=== PATIENT | male | born 1955 | race Caucasian/White ===

== ENCOUNTER 2018-10-10 06:29 | Observation (INO) | payer OTHER ==
[2018-10-10 07:09] LABS: Absolute Lymphocytes (CBC) 1.4 K/uL (0.7-4.9); Basophils % 0.3 % (0-1.3); Eosinophils % 0.7 % (0-4.4); Hematocrit 49.5 % (39.6-49.0); Lymphocytes % 10.5 % (15.3-44.8); MPV 8.6 fL (7.6-11.3); Monocytes % 7.1 % (3.3-12.3); RBC Red Blood Cell Count 5.18 M/uL (4.33-5.43)
[2018-10-10] MEDS ORDERED: PROMETHAZINE 25 MG/ML VIAL ONE (07:17)
[2018-10-10] MEDS ORDERED: NA CHLORIDE 0.9% 1,000 ML ONE (07:17)
[2018-10-10] MEDS ORDERED: MORPHINE 4 MG/ML SYR ONE (07:17)
[2018-10-10 07:42] LABS: ALT/SGPT 27 U/L (12-78); AST/SGOT 28 U/L (15-37); Albumin 3.7 g/dL (3.4-5.0); Alkaline Phosphatase 68 U/L (45-117); BUN Blood Urea Nitrogen 14 mg/dL (7-18); Bicarbonate 27 mmol/L (21-32); Bilirubin Direct 0.2 mg/dL (0-0.2); Bilirubin Total 0.9 mg/dL (0.2-1.0); Glucose Level 126 mg/dL (74-106); Lipase 123 U/L (73-393); Protein, Total 7.5 g/dL (6.4-8.2); Sodium Level 139 mmol/L (136-145); Troponin (Emerg Dept Use Only) < 0.02 ng/mL (0.0-0.045)
[2018-10-10] MEDS ORDERED: FENTANYL CITR 100 MCG/2 ML ONE (08:35)
--- NOTE | 2018-10-10 08:48 | RAD REPORT ---
EXAM DESCRIPTION: CT - Angio Aorta For Dissection - 10/10/2018 8:29 am CLINICAL HISTORY: Chest pain radiating to the back. abd pain COMPARISON: No comparisons TECHNIQUE: CT angiography of the aorta was performed with MIPs. All CT scans are performed using dose optimization technique as appropriate and may include automated exposure control or mA/KV adjustment according to patient size. FINDINGS: A left aortic arch is present with normal branching pattern of the great vessels.No acute aortic finding is seen such as aneurysm, penetrating ulcer or dissection. The celiac axis, SMA, NAMAN and renal arteries are widely patent. Focal soft plaque is present right common iliac artery resultin g in mild luminal narrowing. No evidence of pulmonary embolism. Mild diffuse COPD. The liver demonstrates no focal mass or biliary dilatation.The spleen, pancreas, adrenal glands and k idneys are within normal limits for arterial phase imaging. No bowel obstruction, free fluid or abscess.The appendix is dilated and inflamed in the right lower q uadrant measuring up to 12 mm. An appendicolith is seen in the base of the appendix.No pathologic enl arged lymphadenopathy identified. Bilateral total hip arthroplasties are noted. IMPRESSION: Acute appendicitis. No acute aortic finding.
[2018-10-10] MEDS ORDERED: Levofloxacin 750mg IV 750 MG/150 ML BAG IV ONE (09:19)
[2018-10-10] MEDS ORDERED: METRONIDAZOLE 500mg IVPB 500 MG/100 ML BAG IV ONE (09:19)
--- NOTE | 2018-10-10 09:19 | EDPHYS ---
Physician Documentation [facility] Name: Aravind Lyles Age: 63 yrs Sex: Male : 1955 Arrival Date: 10/10/2018 Time: 06:29 Bed 8 Private MD: ED Physician Gianfranco Omalley HPI: 10/10 06:53 This 63 yrs old Male presents to ER via Ambulatory with complaints of snw Abdominal Pain. 06:53 The patient presents with abdominal pain right lower quadrant, in the left lower snw quadrant. Onset: The symptoms/episode began/occurred suddenly, at 02:00, and became worse and became persistent. The symptoms do not radiate. Associated signs and symptoms: Pertinent positives: nausea and vomiting. The symptoms are described as shooting, vague. Severity of pain: At its worst the pain was moderate severe in the emergency department the pain has improved mildly. The patient has not experienced similar symptoms in the past. It is unknown whether or not the patient has recently seen a physician, andreina Montoya. hx of GERD and Hypertriglyceridemia. Historical: - Allergies: 06:54 PENICILLINS; bb - Home Meds: 06:54 fenofibrate oral oral [Active]; Clonazepam Oral [Active]; Prevacid Oral [Active]; bb testosterone [Active]; - PMHx: 06:54 Anxiety; Hyperlipidemia; bb - PSHx: 06:54 hip replacement x 4; hernia with mesh; bb - Immunization history:: Adult Immunizations up to date. - Social history:: Smoking status: Patient/guardian denies using tobacco, Patient uses alcohol, occasionally. Patient/guardian denies using street drugs. - Ebola Screening: : No symptoms or risks identified at this time. ROS: 06:53 Constitutional: Negative for fever, chills, and weight loss, Eyes: Negative for injury, snw pain, redness, and discharge, ENT: Negative for injury, pain, and discharge, Neck: Negative for injury, pain, and swelling, Cardiovascular: Negative for chest pain, palpitations, and edema, Respiratory: Negative for shortness of breath, cough, wheezing, and pleuritic chest pain, Back: Negative for injury and pain, : Negative for injury, bleeding, discharge, and swelling, MS/Extremity: Negative for injury and deformity, Skin: Negative for injury, rash, and discoloration, Neuro: Negative for headache, weakness, numbness, tingling, and seizure. 06:53 Abdomen/GI: Positive for abdominal pain, vomiting, of the right lower quadrant and left lower quadrant. 06:54 Abdomen/GI: Negative for diarrhea, constipation, hematemesis, black/tarry stool, rectal snw pain, rectal bleeding. Exam: 06:52 Constitutional: This is a well developed, well nourished patient who is awake, alert, snw and in no acute distress. Head/Face: Normocephalic, atraumatic. Eyes: Pupils equal round and reactive to light, extra-ocular motions intact. Lids and lashes normal. Conjunctiva and sclera are non-icteric and not injected. Cornea within normal limits. Periorbital areas with no swelling, redness, or edema. ENT: Nares patent. No nasal discharge, no septal abnormalities noted. Tympanic membranes are normal and external auditory canals are clear. Oropharynx with no redness, swelling, or masses, exudates, or evidence of obstruction, uvula midline. Mucous membranes moist. Neck: Trachea midline, no thyromegaly or masses palpated, and no cervical lymphadenopathy. Supple, full range of motion without nuchal rigidity, or vertebral point tenderness. No Meningismus. Chest/axilla: Normal chest wall appearance and motion. Nontender with no deformity. No lesions are appreciated. Cardiovascular: Regular rate and rhythm with a normal S1 and S2. No gallops, murmurs, or rubs. Normal PMI, no JVD. No pulse deficits. Respiratory: Lungs have equal breath sounds bilaterally, clear to auscultation and percussion. No rales, rhonchi or wheezes noted. No increased work of breathing, no retractions or nasal flaring. Back: No spinal tenderness. No costovertebral tenderness. Full range of motion. Skin: Warm, dry with normal turgor. Normal color with no rashes, no lesions, and no evidence of cellulitis. MS/ Extremity: Pulses equal, no cyanosis. Neurovascular intact. Full, normal range of motion. Neuro: Awake and alert, GCS 15, oriented to person, place, time, and situation. Cranial nerves II-XII grossly intact. Motor strength 5/5 in all extremities. Sensory grossly intact. Cerebellar exam normal. Normal gait. Psych: Awake, alert, with orientation to person, place and time. Behavior, mood, and affect are within normal limits. 06:52 Abdomen/GI: Inspection: abdomen appears normal, Bowel sounds: hypoactive, Palpation: mild abdominal tenderness, in the right lower quadrant and left lower quadrant. Vital Signs: 06:54 BP 168 / 104; Pulse 103; Resp 18 S; Temp 99.4(O); Pulse Ox 99% on R/A; Weight 83.91 kg bb (R); Height 5 ft. 10 in. (177.80 cm) (R); Pain 7/10; 07:34 BP 158 / 94; Pulse 90; Resp 18; Pulse Ox 97% ; sv 08:34 BP 173 / 101; Pulse 94; Resp 18; Pulse Ox 99% on R/A; Pain 7/10; tw2 09:30 BP 173 / 98; Pulse 95; Resp 15; Pulse Ox 99% ; sv 10:30 BP 175 / 93; Pulse 91; Resp 14; Pulse Ox 99% ; sv 06:54 Body Mass Index 26.54 (83.91 kg, 177.80 cm) bb MDM: 06:43 Patient medically screened. snw 09:07 Data reviewed: vital signs, nurses notes. Data interpreted: Pulse oximetry: on room air snw is 99 %. Interpretation: normal. Counseling: I had a detailed discussion with the patient and/or guardian regarding: the historical points, exam findings, and any diagnostic results supporting the discharge/admit diagnosis, the presence of at least one elevated blood pressure reading (>120/80) during this emergency department visit, lab results, radiology results, the need for further work-up and treatment in the hospital. Physician consultation: Gianfranco Omalley MD was called at 09:07, was contacted at 09:07, regarding consult, to Call Dr. Gonzalez, in the emergency department to see patient at 09:08. 09:15 Physician consultation: Marvin Gonzalez MD was called at 09:15, was contacted at 09:15, kdr regarding admission, patient's condition, and will see patient in OR, shortly. 10/10 06:52 Order name: Basic Metabolic Panel; Complete Time: 07:43 snw 10/10 06:52 Order name: CBC with Diff; Complete Time: 07:15 snw 10/10 06:52 Order name: Creatinine for Radiology; Complete Time: 07:43 snw 10/10 06:52 Order name: Hepatic Function; Complete Time: 07:43 snw 10/10 06:52 Order name: Lipase; Complete Time: 07:43 snw 10/10 06:52 Order name: Troponin (emerg Dept Use Only); Complete Time: 07:43 snw 10/10 06:52 Order name: EKG; Complete Time: 06:53 snw 10/10 06:52 Order name: CT Aorta for Dissection; Complete Time: 08:59 snw 10/10 06:52 Order name: Labs collected and sent; Complete Time: 06:57 snw 10/10 06:52 Order name: EKG - Nurse/Tech; Complete Time: 07:00 snw Administered Medications: 07:10 Drug: Phenergan 12.5 mg Route: IVP; Site: right antecubital; bb 08:32 Follow up: Response: No adverse reaction; Nausea is decreased tw2 07:10 Drug: NS 0.9% 1000 ml Route: IV; Rate: 125 ml/hr; Site: right antecubital; bb 11:07 Follow up: Response: No adverse reaction; IV Status: Infusion continued upon admission sv 07:11 Drug: morphine 4 mg Route: IVP; Site: right antecubital; bb 08:34 Follow up: Response: No adverse reaction; Pain is unchanged, physician notified tw2 08:32 Drug: fentaNYL (PF) 50 mcg Route: IVP; Site: right antecubital; tw2 09:00 Follow up: Response: No adverse reaction sv 09:50 Drug: Flagyl 500 mg Volume: 100 ml; Route: IVPB; Rate: 200 ml/hr; Infused Over: 30 sv mins; Site: right antecubital; 10:50 Follow up: Response: No adverse reaction; IV Status: Completed infusion; IV Intake: sv 100ml 10:51 Follow up: Response: No adverse reaction; IV Intake: 100ml sv 10:51 Drug: LevaQUIN 750 mg Volume: 150 ml; Route: IVPB; Infused Over: 90 mins; Site: right sv antecubital; 11:07 Follow up: Response: No adverse reaction; IV Status: Infusion continued upon admission sv Disposition: 09:16 Co-signature as Attending Physician, Gianfranco Omalley MD I agree with the assessment and kdr plan of care. Disposition: 10/10/18 09:16 Hospitalization ordered by Marvin Gonzalez for Observation. Preliminary diagnosis is Acute appendicitis. - Bed requested for Telemetry/MedSurg (Inpatient). - Status is Observation. sv - Condition is Stable. - Problem is new. - Symptoms are unchanged. UTI on Admission? No Signatures: Dispatcher [employer] EDKaruna Funez, RN RN sv Gianfranco Omalley MD MD [facility] Bibiana Freeman, KEITH-C TILESETTER-Csnw Lakia Hudson, RN RN bb Lore Wolfe RN RN tw2 Corrections: (The following items were deleted from the chart) 10:33 09:16 Hospitalization Ordered by Marvin Gonzalez MD for Inpatient Admission. Preliminary [facility] diagnosis is Acute appendicitis. Bed requested for Telemetry/MedSurg (Inpatient). Status is Inpatient Admission. Condition is Stable. Problem is new. Symptoms are unchanged. UTI on Admission? No. snw 11:08 10:33 10/10/2018 09:16 Hospitalization Ordered by Marvin Gonzalez MD for Observation. sv Preliminary diagnosis is Acute appendicitis. Bed requested for Telemetry/MedSurg (Inpatient). Status is Observation. Condition is Stable. Problem is new. Symptoms are unchanged. UTI on Admission? No. snw
--- NOTE | 2018-10-10 09:19 | ER ---
Nurse's Notes [facility] Name: Aravind Lyles Age: 63 yrs Sex: Male : 1955 Arrival Date: 10/10/2018 Time: 06:29 Bed 8 Private MD: Diagnosis: Acute appendicitis Presentation: 10/10 06:40 Presenting complaint: Patient states: he woke up this morning with a constant dull bb abdominal pain and vomiting denies diarrhea states "I just can't get comfortable". Transition of care: patient was not received from another setting of care. Onset of symptoms was October 10, 2018. Risk Assessment: Do you want to hurt yourself or someone else? Patient reports no desire to harm self or others. Initial Sepsis Screen: Does the patient meet any 2 criteria? No. Patient's initial sepsis screen is negative. Does the patient have a suspected source of infection? No. Patient's initial sepsis screen is negative. Care prior to arrival: None. 06:40 Method Of Arrival: Ambulatory 06:40 Acuity: BEN 3 bb Historical: - Allergies: 06:54 PENICILLINS; bb - Home Meds: 06:54 fenofibrate oral oral [Active]; Clonazepam Oral [Active]; Prevacid Oral [Active]; bb testosterone [Active]; - PMHx: 06:54 Anxiety; Hyperlipidemia; bb - PSHx: 06:54 hip replacement x 4; hernia with mesh; bb - Immunization history:: Adult Immunizations up to date. - Social history:: Smoking status: Patient/guardian denies using tobacco, Patient uses alcohol, occasionally. Patient/guardian denies using street drugs. - Ebola Screening: : No symptoms or risks identified at this time. Screenin:45 Abuse screen: Denies threats or abuse. Nutritional screening: No deficits noted. bb Tuberculosis screening: No symptoms or risk factors identified. Fall Risk None identified. Assessment: 06:45 General: Appears in no apparent distress. uncomfortable, Behavior is calm, cooperative. bb Pain: Complains of pain in abdomen Pain currently is 7 out of 10 on a pain scale. Pain began suddenly, Is continuous. Neuro: Level of Consciousness is awake, alert, obeys commands, Oriented to person, place, time, situation. Cardiovascular: Heart tones S1 S2 present Capillary refill < 3 seconds Patient's skin is warm and dry. Pulses are all present. Edema is absent. Respiratory: Airway is patent Respiratory effort is even, unlabored, Respiratory pattern is regular, Breath sounds are clear bilaterally. GI: Abdomen is non-distended, Bowel sounds present X 4 quads. Abd is soft X 4 quads Abdomen is tender to palpation in right lower quadrant and left lower quadrant Reports lower abdominal pain, vomiting. : No signs and/or symptoms were reported regarding the genitourinary system. Derm: Skin is pink, warm \\T\\ dry. Musculoskeletal: Circulation, motion, and sensation intact. 07:15 Reassessment: Patient appears in no apparent distress at this time. Patient and/or sv family updated on plan of care and expected duration. Pain level reassessed. Patient is alert, oriented x 3, equal unlabored respirations, skin warm/dry/pink. 08:34 Reassessment: Patient appears in no apparent distress at this time. Patient and/or tw2 family updated on plan of care and expected duration. Pain level reassessed. Patient is alert, oriented x 3, equal unlabored respirations, skin warm/dry/pink. Patient states symptoms have not improved. 10:51 Reassessment: Patient appears in no apparent distress at this time. Patient and/or sv family updated on plan of care and expected duration. Pain level reassessed. Patient is alert, oriented x 3, equal unlabored respirations, skin warm/dry/pink. 11:00 Reassessment: Patient appears in no apparent distress at this time. Patient and/or sv family updated on plan of care and expected duration. Pain level reassessed. Patient is alert, oriented x 3, equal unlabored respirations, skin warm/dry/pink. Vital Signs: 06:54 BP 168 / 104; Pulse 103; Resp 18 S; Temp 99.4(O); Pulse Ox 99% on R/A; Weight 83.91 kg bb (R); Height 5 ft. 10 in. (177.80 cm) (R); Pain 7/10; 07:34 BP 158 / 94; Pulse 90; Resp 18; Pulse Ox 97% ; sv 08:34 BP 173 / 101; Pulse 94; Resp 18; Pulse Ox 99% on R/A; Pain 7/10; tw2 09:30 BP 173 / 98; Pulse 95; Resp 15; Pulse Ox 99% ; sv 10:30 BP 175 / 93; Pulse 91; Resp 14; Pulse Ox 99% ; sv 06:54 Body Mass Index 26.54 (83.91 kg, 177.80 cm) bb ED Course: 06:29 Patient arrived in ED. ds1 06:43 Bibiana Freeman [facility]-C [facility]. snw 06:43 Nikunj Sanchez MD is Attending Physician. snw 06:45 Patient has correct armband on for positive identification. Placed in gown. Bed in low bb position. Call light in reach. Side rails up X 1. Adult w/ patient. Pulse ox on. NIBP on. Warm blanket given. 06:45 Initial lab(s) drawn, by me, sent to lab. Inserted saline lock: 20 gauge in right bb antecubital area, using aseptic technique. Blood collected. 06:50 Lakia Hudson RN is Primary Nurse. bb 06:52 Triage completed. bb 06:54 Arm band placed on Patient placed in an exam room, on a stretcher, on pulse oximetry. bb Family accompanied patient. 07:01 EKG done, by engine test cell technician. reviewed by Bibiana MCCARTNEY. tl2 08:29 CT Aorta for Dissection In Process Unspecified. EDMS 09:03 Attending Physician role handed off by Nikunj Sanchez MD kdr 09:03 Gianfranco Omalley MD is Attending Physician. kdr 09:15 Marvin Gonzalez MD is Hospitalizing Provider. snw 10:50 Primary Nurse role handed off by Lakia Hudson RN sv 10:50 Karuna Reed RN is Primary Nurse. sv 11:07 No provider procedures requiring assistance completed. Patient admitted, IV remains in sv place. intact. Administered Medications: 07:10 Drug: Phenergan 12.5 mg Route: IVP; Site: right antecubital; bb 08:32 Follow up: Response: No adverse reaction; Nausea is decreased tw2 07:10 Drug: NS 0.9% 1000 ml Route: IV; Rate: 125 ml/hr; Site: right antecubital; bb 11:07 Follow up: Response: No adverse reaction; IV Status: Infusion continued upon admission sv 07:11 Drug: morphine 4 mg Route: IVP; Site: right antecubital; bb 08:34 Follow up: Response: No adverse reaction; Pain is unchanged, physician notified tw2 08:32 Drug: fentaNYL (PF) 50 mcg Route: IVP; Site: right antecubital; tw2 09:00 Follow up: Response: No adverse reaction sv 09:50 Drug: Flagyl 500 mg Volume: 100 ml; Route: IVPB; Rate: 200 ml/hr; Infused Over: 30 sv mins; Site: right antecubital; 10:50 Follow up: Response: No adverse reaction; IV Status: Completed infusion; IV Intake: sv 100ml 10:51 Follow up: Response: No adverse reaction; IV Intake: 100ml sv 10:51 Drug: LevaQUIN 750 mg Volume: 150 ml; Route: IVPB; Infused Over: 90 mins; Site: right sv antecubital; 11:07 Follow up: Response: No adverse reaction; IV Status: Infusion continued upon admission sv Intake: 10:50 IV: 100ml; Total: 100ml. sv 10:51 IV: 100ml; Total: 200ml. sv Output: 10:00 Urine: 700ml (Voided); Total: 700ml. sv Outcome: 09:16 Decision to Hospitalize by Provider. snw 11:06 Admitted to OR accompanied by nurse, family with patient, via stretcher, with chart, sv Report called to EMPLOYMENT RECRUITER 11:06 Condition: stable 11:06 Instructed on the need for admit. 11:08 Patient left the ED. sv Signatures: Dispatcher [employer] Karuna Julio RN RN sv Gianfranco Omalley MD MD kdr Therrien, Shelly, CUTTER HELPER-C CUTTER HELPER-CsnAdriana Carpio ds1 Lakia Hudson RN RN bb Lroe Wolfe RN RN tw2 Tracey Starr RN RN tl2
--- NOTE | 2018-10-10 09:54 | EKG ---
Test Date: 2018-10-10 Test Time: 07:06:06 Pest Control Specialist: KRISSY MEASUREMENT RESULTS: Intervals: Rate: 97 MS: 154 QRSD: 96 QT: 328 QTc: 416 [place]: P: 23 MS: 154 QRS: 28 T: 38 INTERPRETIVE STATEMENTS: Normal sinus rhythm Minimal voltage criteria for LVH, may be normal variant Borderline ECG No previous ECG available for comparison Electronically Signed On 10-10-18 09:53:52 CDT by Gabe Tam
--- NOTE | 2018-10-10 10:59 | P.CNS ---
Date of Consult: 10/10/18 Reason for Consult: Medical Management Requesting Physician: Marvin Gonzalez Primary Care Provider: Whitney Montoya NP([place]) Chief Complaint: Abdominal pain History of Present Illness: 63-year-old male presented to the emergency room with right lower quadrant abdominal pain with nausea and vomiting. I was consulted for medical management. Patient presented with right lower quadrant abdominal pain with nausea and vomiting. This started last night. Pain persisted. Pain was severe and localized to the right lower quadrant. Patient came to the ER for evaluation. White count elevated at 13.2, hemoglobin 16. Sodium 139, potassium 4.0. BUN of 14, creatinine 1.3 with a GFR 57. Glucose 126. CT scan-Acute appendicitis noted. Patient is NPO for surgery. Blood pressures slightly elevated the emergency room. Patient with no prior history of hypertension. Medical history consists of hypertriglyceridemia, GERD, and anxiety. Home medications list reviewed: Yes - Past Medical/Surgical History Diabetic: No -: GERD -: Hypertriglyceridemia -: Anxiety -: Former tobacco use -: Alcohol use -: 4 hip replacements -: Left inguinal hernia repair Psychosocial/ Personal History: Patient is - Family History Father Family History: Reviewed- Non-Contributory - Social History Smoking Status: Former smoker Alcohol use: Yes CD- Drugs: No Caffeine use: Yes Place of Residence: Home Review of Systems General: As per HPI Eyes: Unremarkable ENT: Unremarkable Respiratory: Unremarkable Cardiovascular: Unremarkable Gastrointestinal: Nausea, Vomiting, Abdominal Pain, As per HPI Genitourinary: Unremarkable Integumentary: Unremarkable Neurological: Unremarkable Lymphatics: Unremarkable Physical Examination General: Alert, In no apparent distress, Oriented x3, Cooperative HEENT: Atraumatic, Mucous membr. moist/pink Neck: Supple, No Thyromegaly Respiratory: Clear to auscultation bilaterally, Normal air movement Cardiovascular: Normal pulses, Regular rate/rhythm Gastrointestinal: Hypoactive, Non-distended, No masses, No rebound, No guarding , Tenderness (Right lower quadrant abdominal pain) Musculoskeletal: No erythema, No tenderness, No warmth Integumentary: No erythema, No warmth, No cyanosis Neurological: Normal speech, Normal strength at 5/5 x4 extr, Normal tone, Normal affect Laboratory Data (last 24 hrs) 10/10/18 06:45: Creatinine 1.35 H 10/10/18 06:45: WBC 13.2 H, Hgb 16.9, Hct 49.5 H, Plt Count 176 10/10/18 06:45: Sodium 139, Potassium 4.0, BUN 14, Creatinine 1.29, Glucose 126 H, Total Bilirubin 0.9, AST 28, ALT 27, Alkaline Phosphatase 68, Lipase 123 Conclusions/Impression: Impression: Right lower quadrant abdominal pain with nausea and vomiting secondary to acute appendicitis Elevated blood pressure without hypertension Hypertriglyceridemia GERD Anxiety Alcohol use Plan: Right lower quadrant abdominal pain with nausea and vomiting secondary to acute appendicitis: Patient currently admitted and NPO for surgery this morning. Continue IV antibiotic therapy and IV fluids. Will continue to monitor closely alongside surgery. Await findings. Elevated blood pressure without hypertension: Patient without history of hypertension. Blood pressure is elevated likely related to pain. Will adjust pain medication. Will provide IV blood pressure medication if systolic significantly elevated. Will continue to monitor closely. Hypertriglyceridemia: Hold his medication at this time GERD: Will continue with IV Pepcid. Anxiety: Will provide medication IV as needed. Alcohol use: Patient drinks 2-3 glasses of whiskey per day. Will monitor closely. Patient with no history of alcohol withdrawal in the past. Will address cessation education. Time Spent Managing Pts care (In Minutes): 55
[2018-10-10] MEDS ORDERED: GLYCOPYRROLATE 0.2 MG/ML SYR ONE (11:06)
[2018-10-10] MEDS ORDERED: PROPOFOL 200 MG/20 ML VIAL IV ONE (11:06)
[2018-10-10] MEDS ORDERED: FENTANYL CITR 250 MCG/5 ML ONE (11:07)
[2018-10-10] MEDS ORDERED: NEOSTIGMINE 1 MG/ML -10 ML VIAL ONE (11:08)
[2018-10-10] MEDS ORDERED: ONDANSETRON 4 MG/2 ML VIAL ONE (11:08)
[2018-10-10] MEDS ORDERED: ROCURONIUM 50 MG/5 ML VIAL IV ONE (11:08)
[2018-10-10] MEDS ORDERED: LIDOCAINE 2% MPF 5 ML VIAL ONE (11:09)
[2018-10-10] MEDS ORDERED: MIDAZOLAM HCL 2 MG/2 ML INJ ONE (11:12)
[2018-10-10] MEDS ORDERED: Ringers Lactate 1,000 ML IV ONE (12:08)
[2018-10-10] MEDS ORDERED: KETOROLAC 30 MG/ML INJ ONE (12:13)
[2018-10-10] MEDS ORDERED: ACETAMINOPHEN 500 MG TAB PO PRN (12:16)
[2018-10-10] MEDS ORDERED: HYDRALAZINE HCL 20 MG/ML VIAL IV PRN (12:16)
[2018-10-10] MEDS: NA CHLORIDE 0.9% 1,000 ML IV SCH ×3 (12:16→22:16)
[2018-10-10] MEDS ORDERED: LORazepam 2 MG/ML VIAL IV PRN (12:16)
[2018-10-10] MEDS ORDERED: FENTANYL CITR 100 MCG/2 ML IV PRN (12:16)
[2018-10-10] MEDS ORDERED: HYDROCODONE/APAP 7.5/325 MG TAB PO PRN (12:18)
[2018-10-10] MEDS ORDERED: MORPHINE 2 MG/ML SYR IV PRN (12:20)
--- NOTE | 2018-10-10 12:26 | P.BOP ---
Preoperative diagnosis: acute appendicitis Postoperative diagnosis: same Primary procedure: Laparoscopic appendectomy Claim Rep: Freida Obrien (ABDI) Estimated blood loss: <10cc Specimen: appendix Findings: as above Anesthesia: General Complications: None Transferred to: Recovery Room Condition: Good
[2018-10-10] MEDS ORDERED: LABETALOL HCL 100 MG/20 ML ONE (12:28)
--- NOTE | 2018-10-10 13:47 | PREOPHP ---
Date of Admission: 10/10/2018 History Of Present Illness: This is a case of a 63-year-old patient, this morning develop right lowe r quadrant tenderness with guarding. Come to the ER since the pain started 2 o'clock in the morning but by the morning it was not improving. So he came to the ER. Initial workup was done and then the y call me now that the patient had appendicitis and they asked me to proceed accordingly. He denies any dysuria, hematuria, hematochezia, or melena. Denies any recent traveling out of the country. De nies any family member sick at home. Denies any pain like this before. The patient stated that he h as a colonoscopy 1 year ago although his says mainly about 3-4 years ago, done by Dr. Watts and they claimed that it was completely negative, not even polyps. He denies any dysuria, hematuria, he matochezia, or melena. Denies any recent traveling out of the country. Denies any family member sic k at home. Allergies: PENICILLIN. Medications: Clonazepam, Prevacid, testosterone. Past Medical History: Anxiety and hyperlipidemia. Past Surgical History: Surgery includes hip replacement x4, left inguinal hernia with mesh. Family History: Noncontributory. He does not smoke. He does not drink alcohol. Review of Systems: Ten points, otherwise unremarkable. Physical Examination: General: The patient is awake and alert. HEENT: Pupils are equal and reactive, anicteric. Neck: Supple. Chest: Clear. Heart: S1, S2. Abdomen: Soft and depressible. There is right lower quadrant tenderness with guarding. Rovsing sig n and psoas sign positive. Rectal: Deferred. Genitalia: Deferred. Extremities: Good capillary refill. Neuro: Cranial nerves 2 through 12 grossly within normal limits. Laboratory Data: Blood work shows WBC count of 13.2, hemoglobin of 16.9. Creatinine is 1.35. Lipas e 123. Imaging: CAT scan of abdomen and pelvis interpreted by Dr. Cameron as no bowel obstruction. Bilateral hip arthroplasty. Acute appendicitis. Assessment: A 63-year-old male comes to us with acute appendicitis. Laparoscopic possible open appe ndectomy fully explained to the patient, which include but are not limited to infection, bleeding, da mage to adjacent structures, anesthesia complication, [place], even . He also understands this may n ot relieve his symptoms. He might need more than one surgical intervention. He understands the impo rtance of following up also with his primary doctor since we see the blood pressure in this situation to be 173 systolic occasionally although he says he has no blood pressure problems. We are going to consult hospitalist during this admission to help us to address that issue. EDITH Voice ID: [id number]
[2018-10-10] MEDS ORDERED: METRONIDAZOLE 500mg IVPB 500 MG/100 ML BAG IV SCH (15:00)
[2018-10-10 18:48] VITALS: BMI 26.5
[2018-10-10] MEDS ORDERED: ZOLPIDEM TARTRATE 5 MG TABLET PO ONE (20:00)
[2018-10-10] MEDS: FAMOTIDINE 20 MG/2 ML VIAL IV SCH (20:50)
--- NOTE | 2018-10-10 23:45 | OP ---
Date of Procedure: 10/10/2018 Surgeon: Marvin Gonzalez MD [facility] Cook: Freida Obrien. Preoperative Diagnosis: Acute appendicitis. Postoperative Diagnosis: Acute appendicitis. Procedure: Laparoscopic appendectomy. Estimated Blood Loss: Less than 10 cc. Specimen: Appendix. Anesthesia: General plus local. Indications: This is a case of a 63-year-old patient, comes with acute appendicitis. Laparoscopic v ersus open appendectomy benefits, alternatives, and risks were fully explained, which include but are not limited to infection, bleeding, damage to adjacent structures, anesthesia complication, [place], and even . He also understands this may not relieve any symptoms, he might need more than one surgi tatianna intervention. He understood, signed a consent. Description Of Procedure: The patient was brought to the operating room, placed in supine position. Anesthesia was done without complication. Abdominal area was prepped and draped in a sterile fashio n. Marcaine 0.5% was injected for local anesthetic, followed by sharp incision of the skin in the in fraumbilical region. Incision was carried down to fascia, which was opened under direct vision. Per itoneum was encountered, opened under direct vision. Vicryl #1 was placed inside the fascia. Clair trocar was carefully introduced. Pneumoperitoneum was obtained. I placed 2 more trocars, 5 mm each of them, in the suprapubic and left lower quadrant under direct visualization. This allowed me to v isualize the area of the appendix, looks inflamed, and the base of the appendix seems to be spared fr om the inflammation. So, we created a window in the base of the appendix, transected that with an En do JULIANNE 45 mm 3.5, and the mesoappendix with an Endo JULIANNE 45 mm 2.5. No bowel leak. No bleeding. The appendix was removed from abdominal cavity using EndoCatch through the umbilical incision. The area was inspected once again. No bowel leak. No bleeding. At that moment, I proceeded to remove the t rocars under direct vision, deflated the pneumoperitoneum, closed the fascia with #1 Vicryl, irrigate d subcutaneous tissue, closed that with 3-0 chromic, and the skin with chema. Sponge count and ins trument counts were correct. The patient tolerated the procedure well. The patient was sent to [facility] in stable condition. The patient will be admitted for pain control, IV antibiotics. The hospit alist will be looking at him since the blood pressure was elevated and he claimed he has no history o f blood pressure. They are going to be evaluated to see if he needs medical management or treatment for that. ROSA/OMID Voice ID: [id number] Report ID: [id number]
[2018-10-11] MEDS: METRONIDAZOLE 500mg IVPB 500 MG/100 ML BAG IV SCH ×3 (00:29→11:46)
[2018-10-11 06:05] VITALS: O2SAT 98
[2018-10-11 06:28] LABS: Absolute Lymphocytes (CBC) 1.3 K/uL (0.7-4.9); Basophils % 0.3 % (0-1.3); Eosinophils % 1.1 % (0-4.4); Hematocrit 43.3 % (39.6-49.0); Lymphocytes % 20.6 % (15.3-44.8); MPV 8.6 fL (7.6-11.3); Monocytes % 7.2 % (3.3-12.3)
[2018-10-11 06:42] LABS: Potassium 4.2 mmol/L (3.5-5.1)
[2018-10-11] MEDS: NA CHLORIDE 0.9% 1,000 ML IV SCH (08:16)
[2018-10-11] MEDS ORDERED: Levofloxacin500mg IV 500 MG/100 ML BAG IV SCH (09:00)
[2018-10-11] MEDS: FAMOTIDINE 20 MG/2 ML VIAL IV SCH (09:00)
--- NOTE | 2018-10-11 09:34 | P.PN ---
Subjective Date of Service: 10/11/18 Primary Care Provider: Whitney Montoya NP([place], [place]) Chief Complaint: Abdominal pain Subjective: Doing well Physical Examination - Vital Signs Temperature: 97.2 F Blood Pressure: 129/60 Pulse: 69 Respirations: 18 Pulse Ox (%): 98 - Physical Exam General: Alert, In no apparent distress, Oriented x3, Cooperative HEENT: Atraumatic Neck: Supple Respiratory: Clear to auscultation bilaterally, Normal air movement Cardiovascular: Normal pulses, Regular rate/rhythm Gastrointestinal: Normal bowel sounds, Soft and benign, Non-distended Musculoskeletal: No erythema, No tenderness, No warmth Integumentary: No erythema, No warmth, No cyanosis Neurological: Normal speech, Normal strength at 5/5 x4 extr, Normal tone, Normal affect - Studies Medications List Reviewed: Yes Assessment & Plan Discharge Plan: Home (Today) Physician Review Additional Text: Impression: Right lower quadrant abdominal pain with nausea and vomiting secondary to acute appendicitis Elevated blood pressure without hypertension Hypertriglyceridemia GERD Anxiety Alcohol use Plan: Right lower quadrant abdominal pain with nausea and vomiting secondary to acute appendicitis status post laparoscopic appendectomy: Patient doing well this time. Patient tolerating diet. Anticipate discharge today. Patient cleared from a medical standpoint. Will discuss with surgery. Continue with discharge instructions from surgery. Elevated blood pressure without hypertension: Patient without history of hypertension. Blood pressure stable at this time. Blood pressure elevated likely related to pain. No need for medication at this time. Hypertriglyceridemia: Patient may continue with home medication at discharge GERD: Patient may continue with home medication at discharge Anxiety: Patient may continue with home medication at discharge. Alcohol use: Patient drinks 2-3 glasses of whiskey per day. Will provide alcohol cessation education. Time Spent Managing Pts Care (In Minutes): 55
[2018-10-11 14:57] VITALS: BP 141/77; TEMP 97.7
== END 2018-10-11 13:12 | disposition home or self-care (01) ==
LOC: ER 06:29 → INTOOBSV 09:17 → ERHOLD 09:17 → 2ND 12:34 → UNDODISOB 10-11 11:06
PROVIDERS: ADMIT Surgery; ATTEND Surgery
PROC: 0DTJ4ZZ Resection of Appendix, Percutaneous Endoscopic Approach (ICD-10-PCS; principal; 2018-10-10 10:30)
DX: K35.80 Unspecified acute appendicitis (principal); E78.1 Pure hyperglyceridemia; K21.9 Gastro-esophageal reflux disease without esophagitis; F41.9 Anxiety disorder, unspecified; R03.0 Elevated blood-pressure reading, without diagnosis of hypertension; Z79.899 Other long term (current) drug therapy; Z72.89 Other problems related to lifestyle; Z87.891 Personal history of nicotine dependence
CPT/HCPCS: 36415; 71275; 74175; 80048; 80076; 83690; 83735; 84484; 85025; 88304; 88305; 93005; 96361; 96365; 96367; 96375; 99285; G0378; J2250; J2405; J2550; J2704; J2710; J3010; J7030; Q9967

== ENCOUNTER 2019-09-24 07:38 | Day surgery (SDC) | payer OTHER ==
--- NOTE | 2019-09-20 11:56 | RAD REPORT ---
EXAM DESCRIPTION: RAD - Chest Pa And Lat (2 Views) - 09/20/2019 11:42 am CLINICAL HISTORY: pre oppending cardiac catheterization COMPARISON: None TECHNIQUE: Frontal and lateral views of the chest were obtained. FINDINGS: The lungs are clear. Heart size is normal and central vasculature is within normal limit s. No pleural effusion or pneumothorax seen. No acute bony finding noted. No aortic abnormality. IMPRESSION: No acute cardiopulmonary process.
[2019-09-20 12:03] LABS: Protime INR 1.01
[2019-09-20 12:20] LABS: Absolute Lymphocytes (CBC) 1.6 K/uL (0.7-4.9); Basophils % 0.4 % (0-1.3); Hematocrit 45.1 % (39.6-49.0); Lymphocytes % 31.6 % (15.3-44.8); MPV 8.7 fL (7.6-11.3); RBC Red Blood Cell Count 4.78 M/uL (4.33-5.43)
[2019-09-20 12:34] LABS: Potassium 4.4 mmol/L (3.5-5.1)
[~2019-09-24 07:38] MED LIST: ATROPINE SULF 1 MG/10 ML SYR IV ONE; FENTANYL CITR 100 MCG/2 ML ONE; HEPA 1000U/500MLS 1,000 UNIT/500 ML BAG IV ONE; LIDOCAINE 1% MPF 30 ML VIAL ONE; MIDAZOLAM HCL 2 MG/2 ML INJ ONE; NA CHLORIDE 0.9% 0 ML ONE; NA CHLORIDE 0.9% 500 ML ONE
[2019-09-24] MEDS ORDERED: MIDAZOLAM HCL 2 MG/2 ML INJ ONE (07:41)
[2019-09-24] MEDS ORDERED: FENTANYL CITR 100 MCG/2 ML ONE (07:47)
[2019-09-24] MEDS ORDERED: FLUMAZENIL 0.1 MG/ML (5 mL VIAL) IV ONE (07:48)
--- OUTSIDE RECORDS SUMMARY | 2019-09-24 07:48 | XMS REPORT ---
:1955 Author Organization e[employer] Care Team Providers Name Role Phone Berna Coe Provider Role Unavailable Allergies, Adverse Reactions, Alerts Substance Reaction Event Type PCN Rash Drug Allergy Problems Problem Type Condition Code Onset Dates Condition Statu s Problem Dyslipidemia E78.5 Active Problem Low testosterone R79.89 Active Problem Gastroesophageal reflux disease K21.9 Active without esophagitis Assessment Chronic allergic rhinitis J30.9 Ac tive Assessment Chronic allergic conjunctivitis H10.45 Active Problem Anxiety F41.9 Active Problem Acute midline low back pain without M54.5 Active sciatica Problem Essential hypertension I10 Activ e Problem Acute allergic rhinitis due to J30.1 Active pollen Problem Chronic allergic conjunctivitis H10.45 Active Problem Non-seasonal allergic rhinitis, J30.89 Active unspecified trigger Problem Acute prostatitis N41.0 Active Problem Chronic allergic rhinitis J30.9 Ac tive Medications Medication Code Code Instructions Start End Status Dosage System Date Date Fenofibrate [facility] 82750175673 200 MG Orally Active 1 capsule Once a day with a meal Clonazepam ND 93778228694 1 MG Orally Once Jan 28, Active 1 tablet a day 2018 Ciprofloxacin ND 87637282469 500 MG Orally Feb 20, Active 1 tablet HCl every 12 hrs 2019 Testosterone ND 30377882946 200 MG/ML Active 1 ml Cypionate Intramuscular every 2 weeks BusPIRone HCl ND 16331687697 5 MG Orally Jan 28, Active 1 tablet Twice a day 2019 Tramadol HCl ND 19555846162 50 MG Orally Oct , Active 1 tablet Once a day 2019 as needed Lisinopril [facility] 02514277156 10 MG Orally Active 1 ta blet Once a day Flonase Allergy ND 31103011043 50 MCG/ACT Active 1 spray in Relief Nasally Once a each day nostril Lansoprazole ND 81030380149 30 MG Orally Active 1 capsule Once a day Results No Known Results Summary Purpose eClinicalWorks Submission
--- OUTSIDE RECORDS SUMMARY | 2019-09-24 07:48 | XMS REPORT ---
[...] K21.9 Active without esophagitis Assessment Chronic allergic conjunctivitis H10.45 Active Assessment Chronic allergic rhinitis J30.9 Ac tive Problem Anxiety F41.9 Active Problem Acute midline [...] Start End Status Dosage System Date Date Clonazepam [facility] 99112952783 1 MG Orally Once Jan 28, Active 1 tablet a day 2018 BusPIRone HCl ND 68058893163 5 MG Orally Jan 28, Active 1 tablet Twice a day 2019 Fenofibrate [facility] 91085619542 200 MG Orally Active 1 capsule Once a day with a meal Tramadol HCl ND 94621682451 50 MG Orally Jan 28, Active 1 tablet Once a day 2019 as needed Ciprofloxacin ND 66671625724 500 MG Orally Feb 20, Active 1 tablet HCl every 12 hrs 2018 Flonase Allergy ND 63865676863 50 MCG/ACT Active 1 spray in Relief Nasally Once a each day nostril Testosterone ND 41851151647 200 MG/ML Active 1 ml Cypionate Intramuscular every 2 weeks Lansoprazole ND 87248009506 30 MG Orally Active 1 capsule Once a day Lisinopril ND 71443396024 10 MG Orally Active 1 ta blet Once a day Results No Known Results Summary Purpose eClinicalWorks Submission
--- OUTSIDE RECORDS SUMMARY | 2019-09-24 07:48 | XMS REPORT | Continuity of Care Document ---
:1955 Author Organization [facility] Address [address] [place] [address] Care Team Providers Name Role Phone Luis CHRISTINE MD Primary Care Physician Devin METZGER Attending Clinician Unavailable Payers Payer Name Policy Type Policy Number Effective Date Expiration Date Gabe Mchugh Ppo [id number] [address] [facility] Problems Condition Condition Condition Status Onset Resolution Last Treating Co mments Source Name Details Category Date Date Treatment Clinician Date Dyslipidem Dyslipidem Problem Active [facility] Low Low Problem Active [facility] testostero testostero [facility] Gastroesop Gastroesop Problem Active [facility] hage[facility] hageal [facility] reflux reflux Memoria disease disease l without without Outpati esophagiti esophagiti en t s s Clinics Non-season Non-season Problem Active [facility] allergic allergic [facility] a rhinitis, rhinitis, l unspecifie unspecifie Ou tpati d trigger d trigger ent Clinics Anxiety Anxiety Problem [facility] Chronic Chronic Problem Active [facility] allergic allergic [facility] rhinitis rhinitis Mem[facility] a l [facility] ent [facility]ics Chronic Chronic Problem Active [facility] allergic allergic [facility] - conjunctiv conjunctiv Me moria itis itis l Outpati ent Clinics Essential Essential Problem Active [facility] hypertensi hypertensi [facility] - on on [facility]ics Acute Acute Problem Active [facility] prostatiti prostatiti [facility] - s s [facility] Acute Acute Problem Active [facility] midline midline [facility] - low back low back Memori a pain pain l without without Outpati sciatica sciatica ent Clinics Acute Acute Problem Active [facility] allergic allergic [facility] - rhinitis rhinitis Memori a due to due to l pollen pollen [facility] Allergies, Adverse Reactions, Alerts Allergy Allergy Status Severity Reaction(s) Onset Inactive Treating Comm ents Source Name Type Date Date Clinician Penicill Allergy Active Mild 2007-[address] [facility] [address] [facility] 05[facility]04 [facility] PCN Adverse Active Rash [facility] Reaction [facility] Medications Ordered Filled Start Stop Current Ordering Indication Dosage Frequency Signature Comments Components Source Medication Medication Date Date Medication? Clinician (SIG) Name Name Ciprofloxac Ciprofloxac 2018-04 Yes Berna [address] [facility] in HCl in HCl 1-20 [facility] - [facility]: [facility] 00 [facility] Clinics Clonazepam Clonazepam 2018-04 Yes Berna [address] [facility] 0-28 [facility] - [facility]: [facility] 00 [facility] BusPIRone BusPIRone 2018-04 Yes Berna [address] [facility] HCl HCl 0-28 [facility] [facility] - [facility]: Mem[facility] 00 [facility]ics Tramadol Tramadol 2018-04 Yes Berna [address] [facility] HCl HCl 0-28 [place] as needed [facility] - 00:[facility]: [facility] 00 [facility]ics Lisinopril Lisinopril Yes Berna [address] [facility] [place] [facility] Fenofibrate Fenofibrate Yes Berna [address] [facility] [place] with a [facility] - meal [facility]oria l [facility]ics Testosteron Testosteron Yes Berna [address] [facility] e Cypionate e Cypionate [facility] Flonase Flonase Yes Berna [address] [facility] Allergy Allergy [facility] each [facility] - Relief Relief nostril [facility] l [facility] Lansoprazol Lansoprazol Yes Berna [address] [facility] e e [place] [facility] Procedures This patient has no known procedures. Encounters Start End Encounter Admission Attending Care Care Encounter Source Date/Time Date/Time Type Type Clinicians Facility Department ID 2019-09-09 2019-09-09 Outpatient Artemio Celeste [id number] [facility] 10[facility]45[facility]00 10[facility]45[facility] Clin[facility] 2019-09-04 2019-09-04 [facility] [id number] [facility] 09:15:00 09:15:[facility]pat[facility] Clinics 2019-08-30 2019-08-30 [facility] [id number] 08:45:00 08:45:00 [facility] Clinics 2019-08-22 2019-08-22 [facility] [id number] [facility] 10:40:00 10:40:00 [facility] Outpat[facility] Clinics 2019-08-16 2019-08-16 [facility] [id number] 09:20:00 09:20:00 [facility] Medicine Outpati ent Clinics 2019-08-13 2019-08-13 [facility] [id number] [facility] 09:40:00 09:40:00 [facility] Medicine Outpat[facility] Clinics 2019-05-28 2019-05-28 [facility] [id number] [facility] 09[facility]24:00 09:24:00 [facility] Medicine Outpati ent Clinics 2019-05-27 2019-05-27 [facility] [id number] [facility] 09[facility]20:00 09:20:00 [facility] Medicine Outpati ent Clinics 2019-05-23 2019-05-23 [facility] [id number] [facility] 15:40:00 15:40:00 [facility] Medicine Outpat[facility] Clinics 2019-05-20 2019-05-20 [facility] [id number] [facility] 09:00:00 09:00:00 [facility] Medicine Outpati ent Clinics 2019-05-17 2019-05-17 [facility] [id number] 08:40:00 08:40:00 t [facility] Medicine Medicine Outpati ent Clinics 2019-05-15 2019-05-15 [facility] [id number] 10:40:00 10:40:00 [facility] Medicine [facility]pat[facility] Clinics 2019-04-08 2019-04-08 [facility] [id number] [facility] 10:40:00 10:40:00 t [facility] Medicine Medicine Outpati ent Clinics 2019-04-05 2019-04-05 [facility] [id number] 09:40:00 09:40:00 [facility]pat[facility] Clinics 2019-03-25 2019-03-25 [facility] [id number] [facility] 11:00:00 11:00:00 [facility] Outpat[facility] Clinics 2019-03-18 2019-03-18 [facility] [id number] [facility] 10:20:00 10:20:00 [facility] Medicine [facility]pat[facility] Clinics 2019-03-11 2019-03-11 [facility] [id number] [facility] [address] 09:20:00 09:20:00 [facility] Medicine Outpat[facility] Clinics 2019-02-20 2019-02-20 [facility] [id number] [facility] 08:00:00 08:00:00 t [facility] Medicine Medicine Outpati ent Clinics 2019-02-15 2019-02-15 Departed AMANDA GAGNON [facility] [id number] 14:01:00 15:30:[address] [place] [address] 2019-02-11 2019-02-11 [facility] [id number] 08[facility]20:00 08:20:00 [facility] Medicine Outpat[facility] Clinics 2019-02-04 2019-02-04 Outpatient Artemio Celeste [id number] [facility] 15:20:00 15:20:00 [facility] 2019-01-28 2019-01-28 Outpatient Artemio Celeste [id number] 09:00:00 09:00:00 [facility] Results Test Description Test Time Test Comments Results Result Sourc e Comments CT ABD/PEL WO 2019-02-15 CONTRAST-HOPD 15:17:00 [place] [address] Patient Name: ELENO ESCALONA MR #: [id number] : 1955 Age/Sex: 63/M Req #: [id number] Adm Physician: Ordered by: AMANDA METZGER MD Report #: [id number] Location: [facility] Room/Bed: Procedure: [id number] HOPD/CT ABD/PEL WO CONTRAST-HOPD Exam Date: 02/15/19 Exam Time: 1441 REPORT STATUS: Signed EXAM: CT Abdomen and Pelvis WITHOUT intravenous contrast INDICATION: Lower back pain COMPARISON: None. TECHNIQUE: Abdomen and pelvis were scanned utilizing a multidetector helical scanner from the lung base to the pubic symphysis without administration of IV contrast. Coronal and sagittal reformations were obtained. Routine protocol was performed. IV CONTRAST: None ORAL CONTRAST: Water RADIATION DOSE: Total DLP: 720.4 mGy*cm Dose modulation, iterative reconstruction, and/or weight based adjustment of the mA/kV was utilized to reduce the radiation dose to as low as reasonably achievable. FINDINGS: LOWER THORAX: Normal. HEPATOBILIARY: No focal hepatic lesions. No biliary ductal dilatation. The gallbladder appears unremarkable. SPLEEN: No splenomegaly. PANCREAS: No focal masses or ductal dilatation. ADRENALS: No adrenal nodules. KIDNEYS/URETERS: No hydronephrosis, stones, or solid mass lesions. PELVIC ORGANS/BLADDER: Evaluation is obscured by streak artifact from bilateral total hip replacement. PERITONEUM / RETROPERITONEUM: No free air or fluid. LYMPH NODES: No lymphadenopathy. VESSELS: Scattered atherosclerotic calcifications of the nonaneurysmal abdominal aorta and major branches. GI TRACT: Diverticulosis without CT evidence of diverticulitis. No abnormal bowel thickening. No bowel obstruction. Postoperative findings of appendectomy. BONES AND SOFT TISSUES: Status post right and left total hip replacements. No acute fracture or dislocation. IMPRESSION: No acute findings in the abdomen or pelvis. Signed by: Jose D Cavanaugh MD on 02/15/2019 3:23 PM Dictated By: JOSE D CAVANAUGH MD [id number] Transcribed By: BOUBACAR on 02/15/19 1523 COPY TO: AMANDA METZGER MD
--- OUTSIDE RECORDS SUMMARY | 2019-09-24 07:48 | XMS REPORT ---
[...] Start End Status Dosage System Date Date Lansoprazole [facility] 34347353041 30 MG Orally Active 1 capsule Once a day Tramadol HCl [facility] 20228253299 50 MG Orally Jan 28, Active 1 tablet Once a day 2019 as needed Lisinopril [facility] 73558839830 10 MG Orally Active 1 ta blet Once a day Fenofibrate ND 44108335907 200 MG Orally Active 1 capsule Once a day with a meal Testosterone ND 37502910800 200 MG/ML Active 1 ml Cypionate Intramuscular every 2 weeks Clonazepam ND 19044209933 1 MG Orally Once Jan 28, Active 1 tablet a day 2019 BusPIRone HCl ND 72843296690 5 MG Orally Jan 28, Active 1 tablet Twice a day 2018 Ciprofloxacin ND 13253279749 500 MG Orally Feb 20, Active 1 tablet HCl every 12 hrs 2018 Flonase Allergy ND 65221682576 50 MCG/ACT Active 1 spray in Relief Nasally Once a each day nostril Results No Known Results Summary Purpose eClinicalWorks Submission
--- OUTSIDE RECORDS SUMMARY | 2019-09-24 07:49 | XMS REPORT ---
[...] Start End Status Dosage System Date Date Testosterone [facility] 59603413553 200 MG/ML Active 1 ml Cypionate Intramuscular every 2 weeks Tramadol HCl ND 01531189310 50 MG Orally Jan 28, Active 1 tablet Once a day 2019 as needed Ciprofloxacin ND 96412696906 500 MG Orally Feb 20, Active 1 tablet HCl every 12 hrs 2018 BusPIRone HCl ND 31017628216 5 MG Orally Jan 28, Active 1 tablet Twice a day 2019 Fenofibrate [facility] 83085361295 200 MG Orally Active 1 capsule Once a day with a meal Lisinopril [facility] 88290946604 10 MG Orally Active 1 ta blet Once a day Clonazepam ND 87998902995 1 MG Orally Once Jan 28, Active 1 tablet a day 2019 Flonase Allergy [facility] 97313057212 50 MCG/ACT Active 1 spray in Relief Nasally Once a each day nostril Lansoprazole ND 92391047772 30 MG Orally Active 1 capsule Once a day Results No Known Results Summary Purpose eClinicalWorks Submission
--- OUTSIDE RECORDS SUMMARY | 2019-09-24 07:49 | XMS REPORT ---
[...] Start End Status Dosage System Date Date BusPIRone HCl [facility] 98858882359 5 MG Orally Jan 28, Active 1 tablet Twice a day 2018 Clonazepam ND 15950968216 1 MG Orally Once Jan 28, Active 1 tablet a day 2019 Flonase Allergy ND 28151281320 50 MCG/ACT Active 1 spray in Relief Nasally Once a each day nostril Lansoprazole ND 39109962211 30 MG Orally Active 1 capsule Once a day Fenofibrate ND 32240894755 200 MG Orally Active 1 capsule Once a day with a meal Lisinopril [facility] 18196750430 10 MG Orally Active 1 ta blet Once a day Ciprofloxacin ND 38760304284 500 MG Orally Feb 20, Active 1 tablet HCl every 12 hrs 2018 Tramadol HCl ND 75872533226 50 MG Orally Jan 28, Active 1 tablet Once a day 2019 as needed Testosterone ND 11438072312 200 MG/ML Active 1 ml Cypionate Intramuscular every 2 weeks Results No Known Results Summary Purpose eClinicalWorks Submission
--- OUTSIDE RECORDS SUMMARY | 2019-09-24 07:49 | XMS REPORT ---
[...] Status Dosage System Date Date BusPIRone HCl [facility] 67683331699 5 MG Orally Jan 28, Active 1 tablet Twice a day 2018 Testosterone [facility] 61687081409 200 MG/ML Active 1 ml Cypionate Intramuscular every 2 weeks Lisinopril [facility] 17456975264 10 MG Orally Active 1 ta blet Once a day Lansoprazole ND 92873340831 30 MG Orally Active 1 capsule Once a day Fenofibrate [facility] 92261325407 200 MG Orally Active 1 capsule Once a day with a meal Ciprofloxacin ND 41129698291 500 MG Orally Feb 20, Active 1 tablet HCl every 12 hrs 2018 Flonase Allergy ND 10571059000 50 MCG/ACT Active 1 spray in Relief Nasally Once a each day nostril Clonazepam ND 10186476448 1 MG Orally Once Jan 28, Active 1 tablet a day 2019 Tramadol HCl ND 46298948481 50 MG Orally Jan 28, Active 1 tablet Once a day 2019 as needed Results No Known Results Summary Purpose eClinicalWorks Submission
--- NOTE | 2019-09-24 08:46 | OP ---
Date of Procedure: 09/24/2019 Surgeon: Placido Magana MD Internal Control Consultant: Godfrey Mahajan. Procedure: Left heart catheterization, selective coronary artery angiogram. Reason For Procedure: Chest pain, abnormal echocardiogram, unstable angina. Description Of Procedure: The patient was brought to the asset availability leader today, 09/24/2019, as an outpatien t. He does have a history of hypertension, has a history of dyslipidemia, family history of heart di sease, abnormal function study as stated earlier. Brought to the asset availability leader, prepped and draped in the routine sterile fashion and given, I believe, 8 mg of Versed with some fentanyl for sedation. A 6-F rench sheath introduced in the right common femoral artery. Angiography there was normal. Angio-Sea l was used to close the case. Bianka catheter left and right were used to cannulate the left main a nd right main respectively. The RCA was small, normal, but it was nondominant. The left main was in jected, showing normal left main, normal circumflex. He was very left dominant. He had a 30% to 40% narrowing in the proximal LAD. The rest of the coronary arteries were perfectly normal. There were no complications. Blood Loss: 5 mL. Postoperative Diagnosis: Mild coronary artery disease. Assessment And Plan: Medical therapy for now. Anesthesia: Total conscious sedation was 30 minutes. Disposition: Patient will be at bedrest for 2 hours and go home, and he can see me in the office in the next 1-2 weeks. JOAN/OMID Voice ID: [id number] Report ID: [id number]
[2019-09-24 09:59] VITALS: BP 116/61; O2SAT 95
[2019-09-24 10:02] VITALS: TEMP 97.6
== END 2019-09-24 10:13 | disposition home or self-care (01) ==
LOC: CCL 07:38
DX: I25.110 Atherosclerotic heart disease of native coronary artery with unstable angina pectoris (principal); Z11.59 Encounter for screening for other viral diseases; I10 Essential (primary) hypertension; E78.5 Hyperlipidemia, unspecified; Z91.040 Latex allergy status; Z88.0 Allergy status to penicillin; Z91.09 Other allergy status, other than to drugs and biological substances; Z82.49 Family history of ischemic heart disease and other diseases of the circulatory system
CPT/HCPCS: 85025; 80048; 36415; 85610; 85730; 71046; 93454; U0002; C1893; C1760; J2250 ×4; J3010 ×2; J7040; J0583

== ENCOUNTER 2021-10-31 10:05 | Emergency (ER) | payer BC, OTHER ==
--- NOTE | 2021-10-31 10:27 | EDPHYS ---
Physician Documentation [facility] Name: Aravind Lyles Age: 66 yrs Sex: Male : 1955 Arrival Date: 10/31/2021 Time: 10:08 Bed 11 Private MD: ED Physician Karuna Nevarez HPI: 10/31 10:14 This 66 yrs old Male presents to ER via Ambulatory with complaints of Sore Throat, jh7 Difficulty Swallowing. 10:14 The patient presents with sore throat, dysphagia, of both solids and liquids. Onset: jh7 The symptoms/episode began/occurred 4 day(s) ago. Patient reports that he was diagnosed with COVID 4 days ago. His PCP put him on Lageviro, and antiviral for COVID. He reports that all of his COVID symptoms including cough and fever are gone. However he states that he has had a sore throat this whole time and that it is painful to swallow.. Historical: - Allergies: 10:14 PENICILLINS; ll1 - PMHx: 10:14 Anxiety; Hyperlipidemia; ll1 - Immunization history:: Adult Immunizations up to date. - Social history:: Smoking status: Patient denies any tobacco usage or history of. Patient uses. ROS: 10:14 Constitutional: Negative for fever, chills, and weight loss, Eyes: Negative for injury, jh7 pain, redness, and discharge, Neck: Negative for injury, pain, and swelling, Cardiovascular: Negative for chest pain, palpitations, and edema, Respiratory: Negative for shortness of breath, cough, wheezing, and pleuritic chest pain, Abdomen/GI: Negative for abdominal pain, nausea, vomiting, diarrhea, and constipation, Back: Negative for injury and pain, MS/Extremity: Negative for injury and deformity, Skin: Negative for injury, rash, and discoloration, Neuro: Negative for headache, weakness, numbness, tingling, and seizure. 10:14 ENT: Positive for difficulty swallowing, sore throat, Negative for difficulty handling secretions, hoarseness. 10:14 All other systems are negative. Exam: 10:14 Constitutional: This is a well developed, well nourished patient who is awake, alert, jh7 and in no acute distress. Head/Face: Normocephalic, atraumatic. Cardiovascular: Regular rate and rhythm with a normal S1 and S2. No gallops, murmurs, or rubs. Normal PMI, no JVD. No pulse deficits. Respiratory: Lungs have equal breath sounds bilaterally, clear to auscultation and percussion. No rales, rhonchi or wheezes noted. No increased work of breathing, no retractions or nasal flaring. Abdomen/GI: Soft, non-tender, with normal bowel sounds. No distension or tympany. No guarding or rebound. No evidence of tenderness throughout. Back: No spinal tenderness. No costovertebral tenderness. Full range of motion. Skin: Warm, dry with normal turgor. Normal color with no rashes, no lesions, and no evidence of cellulitis. MS/ Extremity: Pulses equal, no cyanosis. Neurovascular intact. Full, normal range of motion. Neuro: Awake and alert, GCS 15, oriented to person, place, time, and situation. Sensory grossly intact. Normal gait. 10:14 ENT: Posterior pharynx: is normal, Airway: normal, Tonsils: are normal in appearance, swelling, is not appreciated, erythema, is not appreciated, exudate, is not appreciated, pooling of secretions, is not appreciated. 10:14 Neck: External neck: is normal, Trachea: is midline with no obvious abnormalities, ROM/movement: is normal, is supple, Lymph nodes: lymphadenopathy is appreciated, anterior cervical nodes, Mild lymphadenopathy with minimal tenderness to palpation.. Vital Signs: 10:14 BP 158 / 91; Pulse 105; Resp 17; Pulse Ox 98% ; Pain 10/10; ll1 10:48 Temp 97.5; ll1 10:52 BP 117 / 79; Pulse 90; ll1 MDM: 10:27 Patient medically screened. [facility] 10:30 Differential diagnosis: pharyngitis, tonsillitis, viral syndrome. Data reviewed: vital [facility] signs, nurses notes. Data interpreted: Pulse oximetry: is 98 %. Interpretation: normal. Counseling: I had a detailed discussion with the patient and/or guardian regarding: the historical points, exam findings, and any diagnostic results supporting the discharge/admit diagnosis, to return to the emergency department if symptoms worsen or persist or if there are any questions or concerns that arise at home. ED course: Unremarkable exam. Informed the patient that a sore throat is a symptom of COVID, and supportive therapy would be best. Gave Toradol to assist with pain, GI cocktail, and prescribed viscous lidocaine to swish and spit for pain relief. Also advised to increase fluid intake, take NSAIDs as needed for pain, and to return to the ER if any new concerning symptoms develop. The patient agreed with the plan of care.. Administered Medications: 10:33 Drug: Ketorolac 60 mg Route: IM; Site: left gluteus; ll1 10:47 Follow up: Response: No adverse reaction; Pain is decreased; RASS: Alert and Calm (0) ll1 10:33 Drug: GI Cocktail without - (Maalox Suspension 30 ml, Lidocaine Liquid 2 % 15 ll1 ml) Route: PO; 10:47 Follow up: Response: No adverse reaction ll1 Disposition Summary: 10/31/21 10:27 Discharge Ordered Location: Home [facility] Problem: new [facility] Symptoms: are unchanged [facility] Condition: Stable [facility] Diagnosis - Coronavirus infection, unspecified [facility] Followup: [facility] - With: Private Physician - When: 2 - 3 days - Reason: Recheck today's complaints Discharge Instructions: - Discharge Summary Sheet [facility] - Sore Throat [facility] - COVID-19 [facility] - COVID-19 Frequently Asked Questions [facility] - 10 Things You Can Do to Manage Your COVID-19 Symptoms at Home - [place] [id number] Forms: - Medication Reconciliation Form [facility] - Thank You Letter [facility] Prescriptions: - Lidocaine Viscous - take 10 milliliter by ORAL route every 2-3 hours As needed; 200 milliliter; [facility] Refills: 0, Product Selection Permitted Signatures: Mary Marshall RN RN 1 Whitney Martin FNP FNP [facility]
--- NOTE | 2021-10-31 10:27 | ER ---
Nurse's Notes [facility] Name: Aravind Lyles Age: 66 yrs Sex: Male : 1955 Arrival Date: 10/31/2021 Time: 10:08 Bed 11 Private MD: Diagnosis: Coronavirus infection, unspecified Presentation: 10/31 10:14 Chief complaint: Patient states: Has had covid for 4 days. Sore throat has gotten worse ll1 each day. Taking antivirals now. Can barely eat or swallow now. Coronavirus screen: Client denies travel out of the [place] in the last 14 days. Ebola Screen: Patient denies travel to an Ebola-affected area in the 21 days before illness onset. Initial Sepsis Screen: Does the patient meet any 2 criteria? HR > 90 bpm. No. Patient's initial sepsis screen is negative. Does the patient have a suspected source of infection? Yes: Productive cough/pneumonia. Risk Assessment: Do you want to hurt yourself or someone else? Patient reports no desire to harm self or others. Onset of symptoms was October 26, 2021. 10:14 Method Of Arrival: Ambulatory ll1 10:14 Acuity: BEN 4 ll1 Triage Assessment: 10:17 General: Appears ill, Behavior is cooperative, appropriate for age. Pain: Complains of ll1 pain in throat Pain currently is 10 out of 10 on a pain scale. Quality of pain is described as aching, Pain began 2-3 days ago. Aggravated by eating, drinking. EENT: Reports nasal congestion pain when swallowing. Neuro: Reports fatigue. Cardiovascular: No deficits noted. Respiratory: Reports cough that is. Historical: - Allergies: 10:14 PENICILLINS; ll1 - PMHx: 10:14 Anxiety; Hyperlipidemia; ll1 - Immunization history:: Adult Immunizations up to date. - Social history:: Smoking status: Patient denies any tobacco usage or history of. Patient uses. Screenin:18 Abuse screen: Denies threats or abuse. Nutritional screening: No deficits noted. ll1 Tuberculosis screening: No symptoms or risk factors identified. Fall Risk Total Benson Fall Scale indicates No Risk (0-24 pts). Assessment: 10:19 Respiratory: Airway is patent Respiratory effort is even, unlabored, Breath sounds are ll1 clear bilaterally. EENT: Throat is clear. 10:45 Reassessment: No changes from previously documented assessment. Patient and/or family ll1 updated on plan of care and expected duration. Pain level reassessed. Patient is alert, oriented x 3, equal unlabored respirations, skin warm/dry/pink. Vital Signs: 10:14 BP 158 / 91; Pulse 105; Resp 17; Pulse Ox 98% ; Pain 10/10; ll1 10:48 Temp 97.5; ll1 10:52 BP 117 / 79; Pulse 90; ll1 ED Course: 10:08 Patient arrived in ED. rg4 10:08 Whitney Martin F[facility] 7 10:08 Karuna Nevarez MD is Attending Physician. 7 10:14 Arm band placed on. ll1 10:17 Triage completed. ll1 10:18 Patient placed in an exam room, on a stretcher. ll1 10:19 Patient has correct armband on for positive identification. Call light in reach. Side ll1 rails up X 1. Cardiac monitoring not applicable on this patient. 10:19 No provider procedures requiring assistance completed. Patient did not have IV access ll1 during this emergency room visit. 10:21 Mary Marshall, RN is Primary Nurse. ll1 Administered Medications: 10:33 Drug: Ketorolac 60 mg Route: IM; Site: left gluteus; ll1 10:47 Follow up: Response: No adverse reaction; Pain is decreased; RASS: Alert and Calm (0) ll1 10:33 Drug: GI Cocktail without - (Maalox Suspension 30 ml, Lidocaine Liquid 2 % 15 ll1 ml) Route: PO; 10:47 Follow up: Response: No adverse reaction ll1 Medication: 10:19 VIS not applicable for this client. ll1 Outcome: 10:27 Discharge ordered by . 7 10:52 Discharged to home ambulatory. ll1 10:52 Condition: stable 10:52 Discharge instructions given to patient, Instructed on discharge instructions, follow up and referral plans. medication usage, Demonstrated understanding of instructions, follow-up care, medications, Prescriptions given X 1. 10:52 Patient left the ED. ll1 Signatures: Johana Pate rg4 Mary Marshall RN RN ll1 Whitney Martin FNP ENGINEERING CLERK [facility] Corrections: (The following items were deleted from the chart) 10:20 10:14 Acuity: BEN 3 ll1 ll1
[2021-10-31] MEDS ORDERED: KETOROLAC 30 MG/ML INJ ONE (10:31)
[2021-10-31] MEDS ORDERED: MAGNES/ALUMIN/SIMET 30ML UCUP ONE (10:31)
[2021-10-31] MEDS ORDERED: LIDOCAINE VISCOUS 2% SOLN 15 ML UDC ONE (10:32)
[2021-10-31 11:53] VITALS: O2SAT 98
[2021-10-31 12:01] VITALS: TEMP 97.5
[2021-10-31 12:05] VITALS: BP 117/79
== END 2021-10-31 10:52 | disposition home or self-care (01) ==
LOC: ER 10:05
DX: U07.1 COVID-19 (principal); Z88.0 Allergy status to penicillin
CPT/HCPCS: 96372; 99283

== ENCOUNTER 2022-10-31 10:47 | Day surgery (SDC) | payer BC ==
[2022-10-31] MEDS ORDERED: Ringers Lactate 1,000 ML IV ONE (11:00)
[2022-10-31] MEDS ORDERED: propofoL 200 MG/20 ML VIAL IV ONE (11:36)
[2022-10-31] MEDS ORDERED: LIDOCAINE 1% MPF 5 ML VIAL ONE (11:37)
[2022-10-31 13:13] VITALS: BP 125/72; TEMP 97; O2SAT 99
== END 2022-10-31 13:00 | disposition home or self-care (01) ==
LOC: OR 10:47
PROVIDERS: ATTEND Surgery
PROC: 0DBP8ZX Excision of Rectum, Via Natural or Artificial Opening Endoscopic, Diagnostic (ICD-10-PCS; principal; 2022-10-31 12:00)
DX: Z12.11 Encounter for screening for malignant neoplasm of colon (principal); N42.9 Disorder of prostate, unspecified; K57.30 Diverticulosis of large intestine without perforation or abscess without bleeding; K64.8 Other hemorrhoids
CPT/HCPCS: 88305; 45380; J2704; J2001; J7120

== ENCOUNTER 2022-11-04 21:43 | Emergency (ER) | payer BC ==
--- OUTSIDE RECORDS SUMMARY | 2022-11-04 21:46 | XMS REPORT | Continuity of Care Document ---
:1955 Author Organization [facility] t Address [address] [facility] [address] [place] [address] Care Team Providers Name Role Phone GIUSEPPE CHRISTINE MD Primary Care Physician Berna Coe Attending Clinician Unavailable AMANDA METZGER Attending Clinician Unavailable Payers Payer Name Policy Type Policy Number Effective Date Expiration Date S [facility] Blue Cross 6 [id number] [facility] Blue Shield - [facility] AETNA 53 [id number] 2020 [facility] 00:00:00 - [facility] Aet[employer] Ppo [id number] [facility] 00:00:00 Patient Medical Center Problems Condition Condition Condition Status Onset Resolution Last Treating Co mments Source Name Details Category Date Date Treatment Clinician Date [id number] ED Problem Common (erectile Spirit dysfunctio - [facility] n) of [facility] [id number] Anxiety Problem [facility] - [facility] [id number] Gastroesop Problem Co mmon hageal Spirit reflux - [facility] disease 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 sciatica [facility] [id number] BPH loc w Problem Com mon urin Spirit obs/LUTS - [facility] [id number] Hypogonadi Problem Com mon sm in male [facility] [id number] Low Problem Common testostero [facility] ne [facility] [id number] Essential Problem Comm on hypertensi [facility] on [facility] [id number] Acute Problem Common prostatiti [facility] s [facility] Allergic Acute Problem Common rhinitis allergic Spirit caused by rhinitis - [facility] pollen due to pollen [facility] Impotence ED Problem Common of organic (erectile Spi rit origin dysfunctio - CHI n) [facility] [id number] Hyperestro Problem Com mon genism in [facility] male [facility] Allergies, Adverse Reactions, Alerts Allergy Allergy Status Severity Reaction(s) Onset Inactive Treating Comm ents Source Name Type Date Date Clinician Penicill Allergy Active Mild 2007-04 [facility] St in to 05-04 [facility] 00:00: Patient e Medical Center Social History Social Habit Start Date Stop Date Quantity Comments Source History of Tobacco Use Co mmon [facility] Sex Assigned At Com mon [facility] Smoking Status Start Date Stop Date Source Never Smoker [facility] Former Smoker 2021-11-10 00:00:00 2021-11-10 00:00:00 [facility] pirit [facility] Medications Ordered Filled Start Stop Current Ordering Indication Dosage Frequency Signature Comments Components Source Medication Medication Date Date Medication? Clinician (SIG) Name Name Eleni Piedraon 2021-04 No 1{ml} Testostero e Cypionate e Cypionate 0-12 ne 200 MG/ML 200 MG/ML 00:00: Cypionate 00 200 MG/ML Testosteron Testosteron 2021-04 No 1{ml} Testostero e Cypionate e Cypionate 0-12 ne 200 MG/ML 200 MG/ML 00:00: Cypionate 00 200 MG/ML [facility] No 1{ml} Testostero e Cypionate e Cypionate 0-12 ne 200 MG/ML 200 MG/ML 00:00: Cypionate 00 200 MG/ML [facility]-0 No 1{ml} Testostero e Cypionate e Cypionate 8-10 ne 200 MG/ML 200 MG/ML 00:00: Cypionate 00 200 MG/ML [place] 2021- No 1{pelle [place] 500 MCG MCG 11-10 t_as_ne MCG 00:00: 00:00 eded} 00 :00 [place] 500 [place] 500 2021- No 1{pelle [place] 500 MCG MCG 11-10 t_as_ne MCG 00:00: 00:00 eded} 00 :00 [place] 500 [place] 500 2021- No 1{pelle [place] 500 MCG MCG 11-10 t_as_ne MCG 00:00: 00:00 eded} 00 :00 Eleni Knowles 0 No 1{ml} Testostero e Cypionate e Cypionate 4-27 ne 200 MG/ML 200 MG/ML 00:00: Cypionate 00 200 MG/ML Anastrozole Anastrozole 2021- No Anastrozol 1 MG 1 MG 4-27 10-24 e 1 MG 00:00: 00:00 00 :00 Anastrozole Anastrozole 2021- No Anastrozol 1 MG 1 MG 4-27 10-24 e 1 MG 00:00: 00:00 00 :00 Anastrozole Anastrozole 2021- No Anastrozol 1 MG 1 MG 4-27 10-24 e 1 MG 00:00: 00:00 00 :00 Eleni Knowles 2020-04 No 1{ml} Testostero e Cypionate e Cypionate 0-27 ne 200 MG/ML 200 MG/ML 00:00: Cypionate 00 200 MG/ML Testosteron Testjocelinon 1 No 1{ml} Testostero e Cypionate e Cypionate 0-27 ne 200 MG/ML 200 MG/ML 00:00: Cypionate 00 200 MG/ML Kenalog Kenalog 2019-0 No 60mg Common (Triamcinol (Triamcinol 12-02 S pirit one) one) 00:00: - CHI 00 [facility] Toradol Toradol 2019-0 No 60mg Common (Ketorolac) (Ketorolac) 12-02 S pirit 00:00: - CHI 00 [facility] Kenalog Kenalog 2020-0 No 60mg Common (Triamcinol (Triamcinol - S pirit one) one) 00:00: - CHI 00 [facility] Toradol Toradol 2020-0 No 60mg Common (Ketorolac) (Ketorolac) 12-02 S pirit 00:00: - CHI 00 [facility] Kenalog Kenalog 2020-0 No 60mg Common (Triamcinol (Triamcinol 12-02 S pirit one) one) 00:00: - CHI 00 [facility] Toradol Toradol 2020-0 No 60mg Common (Ketorolac) (Ketorolac) 12-02 S pirit 00:00: - CHI 00 [facility] Kenalog Kenalog 2020-0 No 60mg Common (Triamcinol (Triamcinol 12-02 S pirit one) one) 00:00: - CHI 00 [facility] Toradol Toradol 2020-0 No 60mg Common (Ketorolac) (Ketorolac) 12-02 S pirit 00:00: - CHI 00 [facility] Kenalog Kenalog 2020-0 No 60mg Common (Triamcinol (Triamcinol 12-02 S pirit one) one) 00:00: - CHI 00 [facility] Toradol Toradol 2020-0 No 60mg Common (Ketorolac) (Ketorolac) 12-02 S pirit 00:00: - CHI 00 [facility] Valsartan Valsartan 2020-0 Yes Berna 1 tablet Common 10-23 [facility] Spirit 00:00: - CHI 00 [facility] Diclofenac Diclofenac 2020-0 2020- No Berna 1 tablet Common Sodium Sodium 10-08 09- [facility] Spirit 00:00: 00:00 - CHI 00 :00 [facility] Kenalog Kenalog 2019- No 40mg Common (Triamcinol (Triamcinol 1-11 S pirit one) one) 00:00: - CHI 00 [facility] Dexamethaso Dexamethaso 2018-1 No 10mg Common ne ne 1-11 Spirit 00:00: - CHI 00 [facility] Kenalog Kenalog 2019- No 40mg Common (Triamcinol (Triamcinol 1-11 S pirit one) one) 00:00: - CHI 00 [facility] Dexamethaso Dexamethaso 2019- No 10mg Common ne ne 1- Spirit 00:00: - CHI 00 [facility] Robertoalog Kenalog 2019- No 40mg Common (Triamcinol (Triamcinol 1-11 S pirit one) one) 00:00: - CHI 00 [facility] Dexamethaso Dexamethaso 2019- No 10mg Common ne ne 1-11 Spirit 00:00: - CHI 00 [facility] Robertoalog Kenalog 2019- No 40mg Common (Triamcinol (Triamcinol 1-11 S pirit one) one) 00:00: - CHI 00 [facility] Dexamethaso Dexamethaso 2019-1 No 10mg Common ne ne 04-13 Spirit 00:00: - CHI 00 [facility] Arlin Kenalog 2019- No 40mg Common (Triamcinol (Triamcinol 1-11 S pirit one) one) 00:00: - CHI 00 [facility] Dexamethaso Dexamethaso 2019- No 10mg Common ne ne 04-13 Spirit 00:00: - CHI 00 [facility] Tramadol Tramadol 2018- Yes Berna 1 tablet Common HCl HCl 0-28 [facility] as needed Spirit 00:00: - CHI 00 [facility] traMADol traMADol 2019- No 1{table QD traMADol HCl 50 MG HCl 50 MG 0-28 t_as_ne HCl 50 MG 00:00: eded} 00 traMADol traMADol 2018- No 1{table QD traMADol HCl 50 MG HCl 50 MG 0-28 t_as_ne HCl 50 MG 00:00: eded} 00 traMADol traMADol 2019- No 1{table QD traMADol HCl 50 MG HCl 50 MG 0-28 t_as_ne HCl 50 MG 00:00: eded} 00 traMADol traMADol 2018- No 1{table QD traMADol HCl 50 MG HCl 50 MG 0-28 t_as_ne HCl 50 MG 00:00: eded} 00 traMADol traMADol 2019- No 1{table QD traMADol HCl 50 MG HCl 50 MG 0-28 t_as_ne HCl 50 MG 00:00: eded} 00 traMADol traMADol 2018-04 No 1{table QD traMADol HCl 50 MG HCl 50 MG 0-28 t_as_ne HCl 50 MG 00:00: eded} 00 traMADol traMADol 2018-04 No 1{table QD traMADol HCl 50 MG HCl 50 MG 0-28 t_as_ne HCl 50 MG 00:00: eded} 00 traMADol traMADol 2018-04 No 1{table QD traMADol HCl 50 MG HCl 50 MG 0-28 t_as_ne HCl 50 MG 00:00: eded} 00 Livalo Livalo Yes Berna 1 tablet Common [facility] - [facility] Testosteron Testosteron Yes Berna 1 ml Common e Cypionate e Cypionate [facility] Clonazepam Clonazepam Yes Berna 1 tablet Common [facility] on the Spirit tongue and - CHI allow to [facility] Flonase Flonase Yes Berna 1 spray in Co mmon Allergy Allergy [facility] each Spirit Relief Relief nostril - CHI [facility] Lansoprazol Lansoprazol Yes Berna 1 capsule Common e e [facility] Spirit [facility] Flonase Flonase No 1{spray QD Flonase Allergy Allergy _in_eac Allergy Relief 50 Relief 50 h_nostr Relief 50 MCG/ACT MCG/ACT il} MCG/ACT Anastrozole Anastrozole No 1{table QD Anastrozol 1 MG 1 MG t} e 1 MG clonazePAM clonazePAM No 1{table QD clonazePAM 1 MG 1 MG t_on_th 1 MG e_tongu e_and_a llow_to _dissol ve} Zinc 50 MG Zinc 50 MG No 1{capsu QD Zinc 50 MG le} clonazePAM clonazePAM No 1{table QD clonazePAM 1 MG 1 MG t_on_th 1 MG e_tongu e_and_a llow_to _dissol ve} Zinc 50 MG Zinc 50 MG No 1{capsu QD Zinc 50 MG le} Meloxicam Meloxicam No 1{table QD Meloxicam 7.5 MG 7.5 MG t} 7.5 MG Flonase Flonase No 1{spray QD Flonase Allergy Allergy _in_eac Allergy Relief 50 Relief 50 h_nostr Relief 50 MCG/ACT MCG/ACT il} MCG/ACT Lansoprazol Lansoprazol No 1{capsu QD Lansoprazo e 30 MG e 30 MG le} le 30 MG Anastrozole Anastrozole No 1{table QD Anastrozol 1 MG 1 MG t} e 1 MG Lansoprazol Lansoprazol No 1{capsu QD Lansoprazo e 30 MG e 30 MG le} le 30 MG Meloxicam Meloxicam No 1{table QD Meloxicam 7.5 MG 7.5 MG t} 7.5 MG clonazePAM clonazePAM No 1{table QD clonazePAM 1 MG 1 MG t_on_th 1 MG e_tongu e_and_a llow_to _dissol ve} Anastrozole Anastrozole No 1{table QD Anastrozol 1 MG 1 MG t} e 1 MG Flonase Flonase No 1{spray QD Flonase Allergy Allergy _in_eac Allergy Relief 50 Relief 50 h_nostr Relief 50 MCG/ACT MCG/ACT il} MCG/ACT Zinc 50 MG Zinc 50 MG No 1{capsu QD Zinc 50 MG le} clonazePAM clonazePAM No 1{table QD clonazePAM 1 MG 1 MG t_on_th 1 MG e_tongu e_and_a llow_to _dissol ve} Flonase Flonase No 1{spray QD Flonase Allergy Allergy _in_eac Allergy Relief 50 Relief 50 h_nostr Relief 50 MCG/ACT MCG/ACT il} MCG/ACT Lansoprazol Lansoprazol No 1{capsu QD Lansoprazo e 30 MG e 30 MG le} le 30 MG Flomax 0.4 Flomax 0.4 No 1{capsu QD Flomax 0.4 MG MG le} MG Zinc 50 MG Zinc 50 MG No 1{capsu QD Zinc 50 MG le} Meloxicam Meloxicam No 1{table QD Meloxicam 7.5 MG 7.5 MG t} 7.5 MG clonazePAM clonazePAM No 1{table QD clonazePAM 1 MG 1 MG t_on_th 1 MG e_tongu e_and_a llow_to _dissol ve} Flomax 0.4 Flomax 0.4 No 1{capsu QD Flomax 0.4 MG MG le} MG Meloxicam Meloxicam No 1{table QD Meloxicam 7.5 MG 7.5 MG t} 7.5 MG Lansoprazol Lansoprazol No 1{capsu QD Lansoprazo e 30 MG e 30 MG le} le 30 MG Zinc 50 MG Zinc 50 MG No 1{capsu QD Zinc 50 MG le} Flonase Flonase No 1{spray QD Flonase Allergy Allergy _in_eac Allergy Relief 50 Relief 50 h_nostr Relief 50 MCG/ACT MCG/ACT il} MCG/ACT Zinc 50 MG Zinc 50 MG No 1{capsu QD Zinc 50 MG le} Testosteron Testosteron No 1{ml} Testostero e Cypionate e Cypionate ne 200 MG/ML 200 MG/ML Cypionate 200 MG/ML Lansoprazol Lansoprazol No 1{capsu QD Lansoprazo e 30 MG e 30 MG le} le 30 MG Anastrozole Anastrozole No 1{table QD Anastrozol 1 MG 1 MG t} e 1 MG Meloxicam Meloxicam No 1{table QD Meloxicam 7.5 MG 7.5 MG t} 7.5 MG Flonase Flonase No 1{spray QD Flonase Allergy Allergy _in_eac Allergy Relief 50 Relief 50 h_nostr Relief 50 MCG/ACT MCG/ACT il} MCG/ACT clonazePAM clonazePAM No 1{table QD clonazePAM 1 MG 1 MG t_on_th 1 MG e_tongu e_and_a llow_to _dissol ve} Zinc 50 MG Zinc 50 MG No 1{capsu QD Zinc 50 MG le} clonazePAM clonazePAM No 1{table QD clonazePAM 1 MG 1 MG t_on_th 1 MG e_tongu e_and_a llow_to _dissol ve} Anastrozole Anastrozole No 1{table QD Anastrozol 1 MG 1 MG t} e 1 MG Meloxicam Meloxicam No 1{table QD Meloxicam 7.5 MG 7.5 MG t} 7.5 MG Flonase Flonase No 1{spray QD Flonase Allergy Allergy _in_eac Allergy Relief 50 Relief 50 h_nostr Relief 50 MCG/ACT MCG/ACT il} MCG/ACT Lansoprazol Lansoprazol No 1{capsu QD Lansoprazo e 30 MG e 30 MG le} le 30 MG Zinc 50 MG Zinc 50 MG No 1{capsu QD Zinc 50 MG le} clonazePAM clonazePAM No 1{table QD clonazePAM 1 MG 1 MG t_on_ 1 MG e_tongu e_and_a llow_to _dissol ve} Anastrozole Anastrozole No 1{table QD Anastrozol 1 MG 1 MG t} e 1 MG Meloxicam Meloxicam No 1{table QD Meloxicam 7.5 MG 7.5 MG t} 7.5 MG Flonase Flonase No 1{spray QD Flonase Allergy Allergy _in_eac Allergy Relief 50 Relief 50 h_nostr Relief 50 MCG/ACT MCG/ACT il} MCG/ACT Lansoprazol Lansoprazol No 1{capsu QD Lansoprazo e 30 MG e 30 MG le} le 30 MG Meloxicam Meloxicam No 1{table QD Meloxicam 7.5 MG 7.5 MG t} 7.5 MG Lansoprazol Lansoprazol No 1{capsu QD Lansoprazo e 30 MG e 30 MG le} le 30 MG Anastrozole Anastrozole 2022- No Anastrozol 1 MG 1 MG 24 e 1 MG 00:00 :00 Immunizations Ordered Immunization Filled Immunization Date Status Commen ts Source Name Name Flucelvax - single Flucelvax - single 2019-12-17 Completed [facility] dose syringe dose syringe 18:33:00 - [facility] Flucelvax - single Flucelvax - single 2019-12-17 Completed [facility] dose syringe dose syringe 18:33:00 - [facility] Flucelvax - single Flucelvax - single 2019-12-17 Completed [facility] dose syringe dose syringe 18:33:00 - [facility] Flucelvax - single Flucelvax - single 2019-12-17 Completed [facility] dose syringe dose syringe 18:33:00 - [facility] Flucelvax - single Flucelvax - single 2019-12-17 Completed [facility] dose syringe dose syringe 18:33:00 - [facility] Flucelvax - single Flucelvax - single 2019-12-17 Completed [facility] dose syringe dose syringe 18:33:00 - [facility] Flucelvax - single Flucelvax - single 2019-12-17 Completed [facility] dose syringe dose syringe 18:33:00 - [facility] Flucelvax - single Flucelvax - single 2019-12-17 Completed [facility] dose syringe dose syringe 18:33:00 - [facility] Kenalog Kenalog 2019-12-03 Completed [facility] (Triamcinolone) (Triamcinolone) 14:34:00 - [facility] Kenalog Kenalog 2019-12-03 Completed [facility] (Triamcinolone) (Triamcinolone) 14:34:00 [facility] Toradol (Ketorolac) Toradol (Ketorolac) 2019-12-03 Completed [facility] 14:33:00 [facility] Toradol (Ketorolac) Toradol (Ketorolac) 2019-12-03 Completed [facility] 14:33:00 - [facility] Kenalog Kenalog 2019-02-11 Completed [facility] (Triamcinolone) (Triamcinolone) 09:23:00 [facility] Kenalog Kenalog 2019-02-11 Completed [facility] (Triamcinolone) (Triamcinolone) 09:23:00 [facility] Dexamethasone Dexamethasone 2019-02-11 Completed Common S pirit 09:21:00 [facility] Dexamethasone Dexamethasone 2019-02-11 Completed Common S pirit 09:21:00 [facility] Vital Signs Vital Name Observation Time Observation Value Comments Source height 2022-04-28 08:00:00 68.5 [in_i] Common S pirit [facility] weight 2022-04-28 08:00:00 176 [lb_av] Common S pirit [facility] temperature 2022-04-28 08:00:00 97.3 [degF] [facility] S pirit [facility] bmi 2022-04-28 08:00:00 26.37 kg/m2 [facility] S pirit [facility] oximetry 2022-04-28 08:00:00 99 % Common [facility] respiratory rate 2022-04-28 08:00:00 18 /min Comm on [facility] blood pressure 2022-04-28 08:00:00 140 mm[Hg] Common [facility] - systolic [facility] blood pressure 2022-04-28 08:00:00 68 mm[Hg] Common [facility] - diastolic [facility] height 2022-01-26 08:15:00 68.5 [in_i] Common [facility] weight 2022-01-26 08:15:00 185.2 [lb_av] Common [facility] temperature 2022-01-26 08:15:00 98.6 [degF] [facility] bmi 2022-01-26 08:15:00 27.75 kg/m2 [facility] oximetry 2022-01-26 08:15:00 99 % [facility] respiratory rate 2022-01-26 08:15:00 16 /min Comm on [facility] blood pressure 2022-01-26 08:15:00 127 mm[Hg] Common [facility] - systolic [facility] blood pressure 2022-01-26 08:15:00 62 mm[Hg] Common [facility] diastolic [facility] height 2021-11-10 11:00:00 68.5 [in_i] Common [facility] weight 2021-11-10 11:00:00 186 [lb_av] Common [facility] temperature 2021-11-10 11:00:00 98.2 [degF] Common [facility] bmi 2021-11-10 11:00:00 27.87 kg/m2 Common [facility] oximetry 2021-11-10 11:00:00 99 % [facility] respiratory rate 2021-11-10 11:00:00 16 /min Comm on [facility] blood pressure 2021-11-10 11:00:00 134 mm[Hg] Common [facility] - systolic [facility] blood pressure 2021-11-10 11:00:00 71 mm[Hg] Common [facility] - diastolic [facility] height 2021-07-28 14:45:00 68.5 [in_i] Common [facility] weight 2021-07-28 14:45:00 199.2 [lb_av] Common [facility] temperature 2021-07-28 14:45:00 98.6 [degF] Common [facility] bmi 2021-07-28 14:45:00 29.84 kg/m2 [facility] oximetry 2021-07-28 14:45:00 99 % [facility] respiratory rate 2021-07-28 14:45:00 16 /min Comm on [facility] blood pressure 2021-07-28 14:45:00 133 mm[Hg] Common [facility] - systolic [facility] blood pressure 2021-07-28 14:45:00 71 mm[Hg] Common [facility] - diastolic [facility] height 2020-12-03 09:00:00 68.5 [in_i] Common [facility] weight 2020-12-03 09:00:00 190 [lb_av] [facility] temperature 2020-12-03 09:00:00 98.6 [degF] Common [facility] bmi 2020-12-03 09:00:00 28.47 kg/m2 Common [facility] oximetry 2020-12-03 09:00:00 97 % Common [facility] blood pressure 2020-12-03 09:00:00 155 mm[Hg] Common [facility] - systolic [facility] blood pressure 2020-12-03 09:00:00 74 mm[Hg] Common [facility] - diastolic [facility] Procedures This patient has no known procedures. Encounters Start End Encounter Admission Attending Care Care Encounter Source Date/Time Date/Time Type Type Clinicians Facility Department ID 2021-04-28 Outpatient [facility], STLMLC STLMLC [id number] Common 12:52:41 Berna [id number] [facility] 2021-04-28 Outpatient [facility], STLMLC STLMLC [id number] Common 12:49:46 Berna [id number] [facility] 2021-04-28 Outpatient [facility], STLMLC STLMLC [id number] Common 12:47:14 Berna 575[address] [facility] 2021-04-28 Outpatient [facility], STLMLC STLMLC [id number] Common 12:02:53 Berna [id number] [facility] 2022-04-28 2022-04-28 OFFICE STLMLC STLMLC [id number] Co mmon 00:00:00 00:00:00 VISIT EST Spir it PT LEVEL 3 - [facility] 2022-01-26 2022-01-26 OFFICE STLMLC STLMLC [id number] Co mmon 00:00:00 00:00:00 VISIT [facility] ESTAB PT - CHI LEVEL 4 [facility] 2022-01-11 2022-01-11 (TEL) STLMLC STLMLC [id number] Co mmon 00:00:00 00:00:00 [facility] 2021-11-10 2021-11-10 OFFICE STLMLC STLMLC [id number] Co mmon 00:00:00 00:00:00 VISIT [facility] ESTAB PT - CHI LEVEL 4 [facility] 2021-07-28 2021-07-28 OFFICE STLMLC STLMLC [id number] Co mmon 00:00:00 00:00:00 VISIT EST Spir it PT LEVEL 3 - [facility] 2021-04-13 2021-04-13 (TEL) STLMLC STLMLC [id number] Co mmon 00:00:00 00:00:00 [facility] 2021-01-27 2021-01-27 (TEL) STLMLC STLMLC [id number] Co mmon 00:00:00 00:00:00 [facility] 2020-12-03 2020-12-03 OFFICE STLMLC STLMLC [id number] Co mmon 00:00:00 00:00:00 VISIT EST Spir it PT LEVEL 3 [facility] 2020-10-23 2020-10-23 Outpatient STLMLC STLMLC [id number] Common 00:00:00 00:00:00 [facility] 2020-09-02 2020-09-02 Outpatient STLMLC STLMLC [id number] Common 00:00:00 00:00:00 [facility] 2020-08-13 2020-08-13 Outpatient STLMLC STLMLC [id number] Common 00:00:00 00:00:00 [facility] 2020-07-16 2020-07-16 Outpatient STLMLC STLMLC [id number] Common 00:00:00 00:00:00 [facility] 2020-07-08 2020-07-08 Outpatient STLMLC STLMLC [id number] Common 00:00:00 00:00:00 [facility] 2020-06-26 2020-06-26 Outpatient STLMLC STLMLC [id number] Common 00:00:00 00:00:00 [facility] 2020-05-25 2020-05-25 Outpatient STLMLC STLMLC [id number] Common 00:00:00 00:00:00 [facility] 2020-05-05 2020-05-05 Outpatient STLMLC STLMLC [id number] Common 00:00:00 00:00:00 [facility] 2020-04-13 2020-04-13 Outpatient STLMLC STLMLC [id number] Common 00:00:00 00:00:00 [facility] 2020-03-03 2020-03-03 Outpatient STLMLC STLMLC [id number] Common 00:00:00 00:00:00 [facility] 2020-02-19 2020-02-19 Outpatient STLMLC STLMLC [id number] Common 00:00:00 00:00:00 [facility] 2020-02-07 2020-02-07 Outpatient STLMLC STLMLC [id number] Common 00:00:00 00:00:00 [facility] 2019-12-03 2019-12-03 [id number] Common 14:00:00 14:00:[address] [facility] 2019-10-24 2019-10-24 [facility] [id number] Common 15:17:00 15:17:[address] [facility] 2019-10-14 2019-10-14 [facility] [id number] Common 08:40:00 08:40:[address] [facility] 2019-10-09 2019-10-09 [facility] [id number] Common 19:49:00 19:49:[address] [facility] 2019-10-07 2019-10-07 [facility] [id number] Common 10:40:00 10:40:[address] [facility] 2019-09-09 2019-09-09 [facility] [id number] Common 10:45:00 10:45:[address] [facility] 2019-09-04 2019-09-04 [facility] [id number] Common 09:15:00 09:15:[address] [facility] 2019-08-30 2019-08-30 [facility] [id number] Common 08:45:00 08:45:[address] [facility] 2019-08-22 2019-08-22 [facility] [id number] Common 10:40:00 10:40:[address] [facility] 2019-08-16 2019-08-16 [facility] [id number] Common 09:20:00 09:20:[address] [facility] 2019-08-13 2019-08-13 [facility] [id number] Common 09:40:00 09:40:[address] [facility] 2019-05-28 2019-05-28 [facility] [id number] Common 09:24:00 09:24:[address] [facility] 2019-05-27 2019-05-27 [facility] [id number] Common 09:20:00 09:20:[address] [facility] [facility] 2019-05-23 2019-05-23 [id number] Common 15:40:00 15:40:[address] [facility] 2019-05-20 2019-05-20 [id number] Common 09:00:00 09:00:[address] [facility] 2019-05-17 2019-05-17 [id number] Common 08:40:00 08:40:[address] [facility] 2019-05-15 2019-05-15 [id number] Common 10:40:00 10:40:[address] [facility] 2019-04-08 2019-04-08 [id number] Common 10:40:00 10:40:[address] [facility] 2019-04-05 2019-04-05 [id number] Common 09:40:00 09:40:[address] [facility] 2019-03-25 2019-03-25 [id number] Common 11:00:00 11:00:[address] [facility] 2019-03-18 2019-03-18 [id number] Common 10:20:00 10:20:[address] [facility] [address] [facility] 2019-03-11 2019-03-11 [id number] Common 09:20:00 09:20:[address] [facility] [address] [facility] 2019-02-20 2019-02-20 [id number] Common 08:00:00 08:00:[address] [facility] [address] [facility] 2019-02-15 2019-02-15 Departed [address] [facility] [id number] [facility] [address] 14:01:00 15:30:00 [facility] [place] 2019-02-11 2019-02-11 [id number] Common 08:20:00 08:20:[address] [facility] [address] [facility] 2019-02-04 2019-02-04 [id number] Common 15:20:00 15:20:[address] [facility] [address] [facility] 2019-01-28 2019-01-28 [id number] Common 09:00:00 09:00:[address] [facility] [address] [facility] Results Test Description Test Time Test Comments Results Result Sourc e Comments CT ABD/PEL WO 2019-02-15 [facility]'s Patients CONTRAST-HOPD 15:17:00 Medical [place] [address] Patient Name: ELENO LYLES MR #: [id number] : 1955 Age/Sex: 63/M Req #: [id number] Adm Physician: Ordered by: AMANDA METZGER MD Report #: [id number] [facility] Room/Bed: Procedure: [id number] HOPD/CT ABD/PEL WO CONTRAST-HOPD Exam Date: 02/15/19 [...]
[2022-11-04] MEDS ORDERED: DIPHENHYDRAMINE 50 MG/ML VIAL ONE (22:16)
[2022-11-04] MEDS ORDERED: METHYLPREDNISOLONE 125 MG INJ ONE (22:16)
[2022-11-04] MEDS ORDERED: predniSONE 20 MG TAB ONE (22:17)
[2022-11-04] MEDS ORDERED: FAMOTIDINE 20 MG/2 ML VIAL IV ONE (22:33)
[2022-11-04] MEDS ORDERED: NA CHLORIDE 0.9% 1,000 ML ONE (22:33)
[2022-11-04 22:43] LABS: Absolute Lymphocytes (CBC) 1.1 K/uL (0.7-4.9); Hematocrit 50.9 % (39.6-49.0); Lymphocytes % 24.8 % (15.3-44.8); MCV 87.7 fL (80-100); MPV 8.1 fL (7.6-11.3)
[2022-11-04 23:07] LABS: ALT/SGPT 1081 U/L (16-61); Albumin 3.8 g/dL (3.4-5.0); Alkaline Phosphatase 99 U/L (45-117); BUN Blood Urea Nitrogen 12 mg/dL (7-18); Bicarbonate 24 mEq/L (21-32); Bilirubin Total 1.2 mg/dL (0.2-1.0); Glomerular Filtration Rate 75 ml/min (=/>90); Glucose Level 109 mg/dL (74-106); Potassium 3.5 mEq/L (3.5-5.1); Protein, Total 7.3 g/dL (6.4-8.2); Sodium Level 139 mEq/L (136-145); Troponin High Sensitivity < 3.0 pg/mL (<58.9)
[2022-11-04 23:14] LABS: AST/SGOT 2637 U/L (15-37)
[2022-11-04 23:34] LABS: Protime INR 1.13
--- NOTE | 2022-11-05 00:39 | ER ---
Nurse's Notes [facility] Name: Aravind Lyles Age: 67 yrs Sex: Male : 1955 Arrival Date: 11/04/2022 Time: 21:43 Bed Treatment Private MD: Diagnosis: Urticaria, unspecified;Idiopathic urticaria;Allergy status to unspecified drugs, medicaments and biological substances status;Abnormal levels of other serum enzymes-elevated AST/ALT;Alcohol abuse Presentation: 11/04 21:57 Chief complaint: Patient states: "About 30 minutes, I started having an allergic mb9 reaction to something while playing poker. I didn't eat, drink, or do anything differently today. Now I have this rash all over my body. I don't feel SOB or have chest pain, I'm just anxious". Coronavirus screen: Vaccine status: Patient reports receiving the 2nd dose of the covid vaccine. Ebola Screen: No symptoms or risks identified at this time. Onset: The symptoms/episode began/occurred suddenly. Anaphylaxis evaluation, the patient reports or I have noted the following symptoms which indicate a significant risk of anaphylaxis: urticaria. Initial Sepsis Screen: Does the patient meet any 2 criteria? No. Patient's initial sepsis screen is negative. Does the patient have a suspected source of infection? No. Patient's initial sepsis screen is negative. Risk Assessment: Do you want to hurt yourself or someone else? Patient reports no desire to harm self or others. Onset of symptoms was November 04, 2022. 21:57 Method Of Arrival: Ambulatory mb9 21:57 Acuity: BEN 3 mb9 Triage Assessment: 21:59 General: Appears uncomfortable, Behavior is cooperative, anxious. Pain: Denies pain. mb9 EENT: Oral mucosa is dry. Neuro: Sullivan Agitation-Sedation Scale (RASS): 0 - Alert and Calm Level of Consciousness is awake, alert, obeys commands, Oriented to person, place, time, situation, Appropriate for age. Cardiovascular: Denies chest pain. Respiratory: Airway is patent Respiratory effort is even, unlabored, Respiratory pattern is regular, symmetrical. GI: No signs and/or symptoms were reported involving the gastrointestinal system. : No signs and/or symptoms were reported regarding the genitourinary system. Derm: Rash noted that is itchy, red, raised, on face, chest, abdomen, right arm, left arm, right leg and left leg. Musculoskeletal: Range of motion: intact in all extremities. Historical: - Allergies: 21:59 PENICILLINS; mb9 - Home Meds: 21:59 testosterone [Active]; mb9 - PMHx: 21:59 Anxiety; Hyperlipidemia; mb9 - PSHx: 21:59 None; mb9 - Immunization history:: Adult Immunizations up to date. - Social history:: Smoking status: Patient denies any tobacco usage or history of. Screenin:00 [facility] ED Fall Risk Assessment (Adult) History of falling in the last 3 months, mb9 including since admission No falls in past 3 months (0 pts) Confusion or Disorientation No (0 pts) Intoxicated or Sedated No (0 pts) Impaired Gait No (0 pts) Mobility Assist Device Used No (0 pt) Altered Elimination No (0 pt) Score/Fall Risk Level 0 - 2 = Low Risk Oriented to surroundings, Maintained a safe environment, Educated pt \\T\\ family on fall prevention, incl call for assistance when getting out of bed. Abuse screen: Denies threats or abuse. Nutritional screening: No deficits noted. Tuberculosis screening: No symptoms or risk factors identified. Assessment: 23:00 Reassessment: Patient appears in no apparent distress at this time. Patient and/or pf1 family updated on plan of care and expected duration. Pain level reassessed. Patient is alert, oriented x 3, equal unlabored respirations, skin warm/dry/pink. Patient states feeling better. Patient states symptoms have improved. 11/05 00:00 Reassessment: Patient appears in no apparent distress at this time. Patient and/or pf1 family updated on plan of care and expected duration. Pain level reassessed. Patient is alert, oriented x 3, equal unlabored respirations, skin warm/dry/pink. Patient states feeling better. Patient states symptoms have improved. 01:00 Reassessment: Patient appears in no apparent distress at this time. Patient and/or pf1 family updated on plan of care and expected duration. Pain level reassessed. Patient is alert, oriented x 3, equal unlabored respirations, skin warm/dry/pink. Patient states feeling better. Patient states symptoms have improved. 02:00 Reassessment: Patient appears in no apparent distress at this time. Patient and/or pf1 family updated on plan of care and expected duration. Pain level reassessed. Patient is alert, oriented x 3, equal unlabored respirations, skin warm/dry/pink. Patient states feeling better. Patient states symptoms have improved. Vital Signs: 11/04 21:57 BP 158 / 93; Pulse 86; Resp 18; Temp 98(T); Pulse Ox 100% on R/A; Weight 81.65 kg; mb9 Height 5 ft. 10 in. ; 23:00 BP 164 / 85; Pulse 80; Resp 17; Pulse Ox 100% ; Pain 0/10; pf1 11/05 00:00 BP 145 / 91; Pulse 77; Resp 18; Pulse Ox 97% on R/A; pf1 01:00 BP 156 / 89; Pulse 81; Resp 17; Pulse Ox 98% on R/A; Pain 0/10; pf1 02:00 BP 147 / 81; Pulse 78; Resp 20; Pulse Ox 97% on R/A; pf1 03:00 BP 135 / 76; Pulse 98; Resp 18; Pulse Ox 98% on R/A; Pain 0/10; pf1 11/04 21:57 Body Mass Index 25.83 (81.65 kg, 177.8 cm) mb9 23:00 Pain Scale: Adult pf1 01:00 Pain Scale: Adult pf1 03:00 Pain Scale: Adult pf1 ED Course: 11/04 21:43 Patient arrived in ED. am2 21:57 Arm band placed on. mb9 21:58 Triage completed. mb9 22:00 Placed in gown. Bed in low position. Call light in reach. Side rails up X 1. Client mb9 placed on continuous cardiac and pulse oximetry monitoring. NIBP monitoring applied. foam fabricator on. 22:00 No provider procedures requiring assistance completed. mb9 22:00 Inserted saline lock: 20 gauge in right antecubital area, using aseptic technique. pf1 Blood collected. 22:02 Joselito Hood MD is Attending Physician. shefali 22:36 Troponin High Sensitivity Sent. pf1 22:37 Comprehensive Metabolic Panel Sent. pf1 22:37 CBC with Diff Sent. pf1 22:57 Chest Single View XRAY In Process Unspecified. EDMS 23:29 PT-INR Sent. pf1 23:29 Lipase Sent. pf1 23:40 Hepatitis Panel Sent. pf1 23:40 AMMONIA Sent. pf1 23:48 US Abdomen Limited In Process Unspecified. EDMS 11/05 00:39 Usman Browning MD is Referral Physician. [facility] 01:33 CT Chest, Abdomen, Pelvis - W/Contrast In Process Unspecified. EDMS 03:00 Provided Education on: prescriptions administration . pf1 03:00 IV discontinued, intact, bleeding controlled, No redness/swelling at site. Pressure pf1 dressing applied. Administered Medications: 11/04 22:25 Drug: NS 0.9% IV 1000 ml Route: IV; Rate: 1 bolus; Site: left antecubital; pf1 23:29 Follow up: Response: No adverse reaction; Marked relief of symptoms; IV Status: pf1 Completed infusion; IV Intake: 1000ml 22:25 Drug: Famotidine IVP 40 mg Route: IVP; Site: left antecubital; pf1 23:25 Follow up: Response: No adverse reaction; Marked relief of symptoms pf1 22:25 Drug: diphenhydrAMINE IVP 50 mg Route: IVP; Site: left antecubital; pf1 23:25 Follow up: Response: No adverse reaction; Marked relief of symptoms pf1 22:25 Drug: MethylPrednisoLONE IVP 125 mg Route: IVP; Site: left antecubital; pf1 23:25 Follow up: Response: No adverse reaction; Marked relief of symptoms pf1 22:25 Drug: predniSONE PO 60 mg Route: PO; pf1 23:25 Follow up: Response: No adverse reaction; Marked relief of symptoms pf1 Medication: 22:00 VIS not applicable for this client. mb9 Intake: 23:29 IV: 1000ml; Total: 1000ml. pf1 Outcome: 11/05 00:39 Discharge ordered by . [facility] 03:00 Discharged to home ambulatory, with family. pf1 03:00 Condition: improved 03:00 Discharge instructions given to patient, family, Instructed on discharge instructions, pf1 follow up and referral plans. the need for admit, Demonstrated understanding of instructions, follow-up care, medications, Prescriptions given X 4. 03:00 Patient left the ED. pf1 Signatures: Dispatcher [employer] EDID Joselito Hood MD MD cha Moreno, Amanda am2 Renee Yang RN RN mb9 Thuy Malone RN RN pf1 Corrections: (The following items were deleted from the chart) 04:41 03:25 Patient left the ED. pf1 pf1
--- NOTE | 2022-11-05 00:39 | EDPHYS ---
Physician Documentation [facility] Name: Aravind Lyles Age: 67 yrs Sex: Male : 1955 Arrival Date: 11/04/2022 Time: 21:43 Bed Treatment Private MD: BRIGID Physician Joselito Hood HPI: 11/04 22:08 This 67 yrs old Male presents to ER via Ambulatory with complaints of shefali Allergic Reaction, Hives. 22:08 The patient presents with itching, rash, redness of skin, shortness of breath. Onset: shefali The symptoms/episode began/occurred just prior to arrival. Associated signs and symptoms: Pertinent positives: chest pain, hives, rash, shortness of breath. Possible causes: The patient has no known obvious cause for the symptoms. At home the patient or guardian has treated the symptoms with nothing. The patient has not experienced similar symptoms in the past. Historical: - Allergies: 21:59 PENICILLINS; mb9 - Home Meds: 21:59 testosterone [Active]; mb9 - PMHx: 21:59 Anxiety; Hyperlipidemia; mb9 - PSHx: 21:59 None; mb9 - Immunization history:: Adult Immunizations up to date. - Social history:: Smoking status: Patient denies any tobacco usage or history of. ROS: 22:09 Constitutional: Negative for fever, chills, and weight loss, Eyes: Negative for injury, shefali pain, redness, and discharge, ENT: Negative for injury, pain, and discharge, Neck: Negative for injury, pain, and swelling, Respiratory: Negative for shortness of breath, cough, wheezing, and pleuritic chest pain, Abdomen/GI: Negative for abdominal pain, nausea, vomiting, diarrhea, and constipation, Back: Negative for injury and pain, : Negative for injury, bleeding, discharge, and swelling, MS/Extremity: Negative for injury and deformity, Neuro: Negative for headache, weakness, numbness, tingling, and seizure, Psych: Negative for depression, anxiety, suicide ideation, homicidal ideation, and hallucinations, Allergy/Immunology: Negative for hives, rash, and allergies, Endocrine: Negative for neck swelling, polydipsia, polyuria, polyphagia, and marked weight changes, Hematologic/Lymphatic: Negative for swollen nodes, abnormal bleeding, and unusual bruising. 22:09 Cardiovascular: Positive for chest pain. 22:09 Skin: Positive for erythema, rash. Exam: 22:09 Constitutional: This is a well developed, well nourished patient who is awake, alert, shefali and in no acute distress. Head/Face: Normocephalic, atraumatic. Eyes: Pupils equal round and reactive to light, extra-ocular motions intact. Lids and lashes normal. Conjunctiva and sclera are non-icteric and not injected. Cornea within normal limits. Periorbital areas with no swelling, redness, or edema. ENT: Nares patent. No nasal discharge, no septal abnormalities noted. Tympanic membranes are normal and external auditory canals are clear. Oropharynx with no redness, swelling, or masses, exudates, or evidence of obstruction, uvula midline. Mucous membranes moist. Neck: Trachea midline, no thyromegaly or masses palpated, and no cervical lymphadenopathy. Supple, full range of motion without nuchal rigidity, or vertebral point tenderness. No Meningismus. Chest/axilla: Normal chest wall appearance and motion. Nontender with no deformity. No lesions are appreciated. Cardiovascular: Regular rate and rhythm with a normal S1 and S2. No gallops, murmurs, or rubs. Normal PMI, no JVD. No pulse deficits. Respiratory: Lungs have equal breath sounds bilaterally, clear to auscultation and percussion. No rales, rhonchi or wheezes noted. No increased work of breathing, no retractions or nasal flaring. Abdomen/GI: Soft, non-tender, with normal bowel sounds. No distension or tympany. No guarding or rebound. No evidence of tenderness throughout. Back: No spinal tenderness. No costovertebral tenderness. Full range of motion. MS/ Extremity: Pulses equal, no cyanosis. Neurovascular intact. Full, normal range of motion. Neuro: Awake and alert, GCS 15, oriented to person, place, time, and situation. Cranial nerves II-XII grossly intact. Motor strength 5/5 in all extremities. Sensory grossly intact. Cerebellar exam normal. Normal gait. Psych: Awake, alert, with orientation to person, place and time. Behavior, mood, and affect are within normal limits. 22:09 Skin: Appearance: Color: erythematous, Temperature: normal temperature, Moisture: normal moisture, petechiae, not noted, abscess, not appreciated, cellulitis, is not appreciated. 23:04 ECG was reviewed by the Attending Physician. [facility] Vital Signs: 21:57 BP 158 / 93; Pulse 86; Resp 18; Temp 98(T); Pulse Ox 100% on R/A; Weight 81.65 kg; mb9 Height 5 ft. 10 in. ; 23:00 BP 164 / 85; Pulse 80; Resp 17; Pulse Ox 100% ; Pain 0/10; pf1 11/05 00:00 BP 145 / 91; Pulse 77; Resp 18; Pulse Ox 97% on R/A; pf1 01:00 BP 156 / 89; Pulse 81; Resp 17; Pulse Ox 98% on R/A; Pain 0/10; pf1 02:00 BP 147 / 81; Pulse 78; Resp 20; Pulse Ox 97% on R/A; pf1 03:00 BP 135 / 76; Pulse 98; Resp 18; Pulse Ox 98% on R/A; Pain 0/10; pf1 11/04 21:57 Body Mass Index 25.83 (81.65 kg, 177.8 cm) mb 23:00 Pain Scale: Adult pf1 01:00 Pain Scale: Adult pf1 03:00 Pain Scale: Adult pf1 MDM: 11/04 22:[address] [facility] 22:12 Differential diagnosis: allergic reaction, anaphylaxis, angioedema, Hereditary shefali Angioedema Mastocystosis urticaria. Data reviewed: vital signs, nurses notes, lab test result(s), EKG, radiologic studies, plain films. Consideration of Admission/Observation Escalation of care including admission/observation considered. I considered the following discharge prescriptions or medication management in the emergency department Medications were administered in the Emergency Department. See MAR. Independent interpretation of the following test(s) in the Emergency Department EKG: See my EKG interpretation above. Test considered but Not performed: CT: no ct chest. External Records Reviewed:. Care significantly affected by the following chronic conditions: high lipids, anxiety. 11/04 22:08 Order name: CBC with Diff; Complete Time: 23:02 [facility] 11/04 22:08 Order name: Comprehensive Metabolic Panel; Complete Time: 23:18 [facility] 11/04 22:08 Order name: Troponin High Sensitivity; Complete Time: 23:18 [facility] 11/04 23:22 Order name: Lipase; Complete Time: 23:49 [facility] 08/04 23:23 Order name: PT-INR; Complete Time: 23:49 [facility] 11/04 23:23 Order name: Hepatitis Panel [facility] 11/04 23:28 Order name: AMMONIA; Complete Time: 00:43 wm 11/04 23:36 Order name: Tylenol Level; Complete Time: 00:43 shefali 11/04 22:08 Order name: Chest Single View XRAY [facility] 11/04 23:19 Order name: CT Chest, Abdomen, Pelvis - W/Contrast [facility] 11/04 23:19 Order name: US Abdomen Limited [facility] 11/04 22:08 Order name: EKG; Complete Time: 22:09 [facility] 11/04 22:08 Order name: EKG - Nurse/Tech; Complete Time: 22:22 [facility] EC:04 Rate is 74 beats/min. Rhythm is regular. QRS [place] is Normal. NH interval is normal. QRS shefali interval is normal. QT interval is normal. No Q waves. T waves are Normal. No ST changes noted. Clinical impression: NSR w/ Non-specific ST/T Changes and No evidence of ischemia. Interpreted by me. Reviewed by me. Administered Medications: 22:25 Drug: NS 0.9% IV 1000 ml Route: IV; Rate: 1 bolus; Site: left antecubital; pf1 23:29 Follow up: Response: No adverse reaction; Marked relief of symptoms; IV Status: pf1 Completed infusion; IV Intake: 1000ml 22:25 Drug: Famotidine IVP 40 mg Route: IVP; Site: left antecubital; pf1 23:25 Follow up: Response: No adverse reaction; Marked relief of symptoms pf1 22:25 Drug: diphenhydrAMINE IVP 50 mg Route: IVP; Site: left antecubital; pf1 23:25 Follow up: Response: No adverse reaction; Marked relief of symptoms pf1 22:25 Drug: MethylPrednisoLONE IVP 125 mg Route: IVP; Site: left antecubital; pf1 23:25 Follow up: Response: No adverse reaction; Marked relief of symptoms pf1 22:25 Drug: predniSONE PO 60 mg Route: PO; pf1 23:25 Follow up: Response: No adverse reaction; Marked relief of symptoms pf1 Disposition Summary: 11/05/22 00:39 Discharge Ordered Location: Home shefali Problem: new shefali Symptoms: have improved shefali Condition: Stable shefali Diagnosis - Urticaria, unspecified shefali - Idiopathic urticaria shefali - Allergy status to unspecified drugs, medicaments and biological substances status [facility] - Abnormal levels of other serum enzymes - elevated AST/ALT shefali - Alcohol abuse [facility] Followup: shefali - With: Private Physician - When: 2 - 3 days - Reason: Recheck today's complaints, Continuance of care, Re-evaluation by your physician Followup: shefali - With: - When: 2 - 3 days - Reason: Recheck today's complaints, Re-evaluation by your physician Discharge Instructions: - Discharge Summary Sheet [facility] - Alcohol Use Disorder [facility] - How to Use an Auto-Injector Pen shefali - Hives shefali - Rash, Adult shefali - Alcohol Abuse and Nutrition shefali - Rash, Adult, [id number] shefali - Hives, [id number] shefali - Alcoholic Hepatitis [facility] - Alcoholic Liver Disease [facility] - Liver Function Tests [facility] Forms: - Medication Reconciliation Form [facility] - Thank You Letter [facility] - Antibiotic Education [facility] - Prescription Opioid Use [facility] - Patient Portal Instructions [facility] Prescriptions: - EpiPen 0.3 mg/0.3 mL Injection Auto-Injector - administer 0.3 milliliter by INTRAMUSCULAR route once; 1 packet; Refills: 0, [facility] Product Selection Permitted - Benadryl 25 mg Oral Capsule - take 2 capsule by ORAL route every 6 hours As needed; 50 tablet; Refills: 0, [facility] Product Selection Permitted - Pepcid 20 mg Oral Tablet - take 1 tablet by ORAL route every 12 hours for 21 days; 42 tablet; Refills: 0, [facility] Product Selection Permitted - Prednisone 20 mg Oral Tablet - take 3 tablet by ORAL route once daily for 5 days; 15 tablet; Refills: 0, [facility] Product Selection Permitted Signatures: Dispatcher [employer] Joselito Laura MD MD cha Breneman, Renee Kaplan, RN RN mb9 Thuy Malone RN RN pf1
[2022-11-05 03:46] LABS: Hepatitis B Core IgM Nonreactive (Nonreactive); Hepatitis B surface AG Interp. Nonreactive (Nonreactive); Hepatitis C Virus Ab Nonreactive (Nonreactive)
[2022-11-05 04:38] VITALS: BP 158/93; TEMP 98; O2SAT 100
--- NOTE | 2022-11-05 22:11 | RAD REPORT ---
EXAM DESCRIPTION: CT Chest, Abdomen and Pelvis With Intravenous Contrast CLINICAL HISTORY: The patient is 67 years old and is Male; CHEST PAIN [facility] MAIN TECHNIQUE: Axial computed tomography images of the chest, abdomen and pelvis with intravenous contra st. Sagittal and coronal reformatted images were created and reviewed. This CT exam was performed using one or more of the following dose reduction techniques: automated exposure control, adjustme nt of the mA and/or kV according to patient size, and/or use of iterative reconstruction technique. COMPARISON: 10/10/2018 CT chest abdomen pelvis with contrast FINDINGS: CHEST: LUNGS: Mild biapical paraseptal emphysematous changes. No focal consolidation. No suspicious pulmonary mass or nodule. PLEURAL SPACE: Unremarkable. No significant effusion. No pneumothorax. HEART: Moderate left main and proximal LAD coronary artery calcification. No significant pericardial effusion. ABDOMEN: LIVER: Unremarkable. No mass. GALLBLADDER AND BILE DUCTS: Unremarkable. No calcified stones. No ductal dilation. PANCREAS: Unremarkable. No ductal dilation. No mass. SPLEEN: Unremarkable. No splenomegaly. ADRENALS: Unremarkable. No mass. KIDNEYS AND URETERS: Unremarkable. No hydronephrosis. No solid mass. STOMACH AND BOWEL: Mild colonic diverticulosis without evidence of acute diverticulitis. No obstruction. PELVIS: APPENDIX: Appendectomy. BLADDER: Unremarkable. No mass. REPRODUCTIVE: Unremarkable as visualized. CHEST, ABDOMEN and PELVIS: INTRAPERITONEAL SPACE: Unremarkable. No significant fluid collection. No free air. BONES/JOINTS: Bilateral total hip arthroplasties noted. No dislocation. No evidence of hardware fracture, failure, or loosening. SOFT TISSUES: Tiny fat-containing umbilical hernia, with associated internal fat stranding. VASCULATURE: No thoracic or abdominal aortic aneurysm, occlusion, or high-grade stenosis. Minimal t horacic and moderate distal abdominal aortic calcified atherosclerosis. No central pulmonary embolism. LYMPH NODES: Unremarkable. No enlarged lymph nodes. IMPRESSION: 1. No acute abnormality of the chest, abdomen, or pelvis. 2. Tiny fat-containing umbilical hernia, with associated internal fat stranding. Recommend physic al exam correlation for point tenderness and/or reducibility. 3. Moderate left main and proximal LAD coronary artery calcification. Electronically signed by: Chalino Ochoa MD 11/05/2022 2:10 AM CDT Due to temporary technical issues with the PACS/Fluency reporting system, reports are being signed by the in house radiologists without review as a courtesy to insure prompt reporting. The interpreting radiologist is fully responsible for the content of the report.
--- NOTE | 2022-11-05 23:14 | RAD REPORT ---
EXAM DESCRIPTION: Abdomen Exam Limited CLINICAL HISTORY: ABD PAIN COMPARISON: None. TECHNIQUE: Real-time sonographic images of the gallbladder were obtained using a curved multihertz t ransducer. FINDINGS: Liver: The liver visualized has normal contour. The common bile duct measures 0.5 cm. Gallbladder: No gallstones identified. Gallbladder wall thickness of 0.3 cm. Sonographic [facility] . IMPRESSION: 1. No gallstones. Electronically signed by: Darion Farooq 11/05/2022 12:07 AM CDT Due to temporary technical issues with the PACS/Fluency reporting system, reports are being signed by the in house radiologists without review as a courtesy to insure prompt reporting. The interpreting radiologist is fully responsible for the content of the report.
--- NOTE | 2022-11-05 23:27 | RAD REPORT ---
EXAM DESCRIPTION: Chest Single View CLINICAL HISTORY: 67 years Male COUGH TECHNIQUE: One view of the chest. COMPARISON: No prior exams provided for comparison. FINDINGS: The lungs are clear without focal consolidation, effusion, or pneumothorax. The cardiomedi astinal silhouette and central pulmonary vasculature are normal. No acute osseous abnormalities. IMPRESSION: No acute cardiopulmonary abnormalities. Electronically signed by: Lupis Nunez MD 11/04/2022 11:19 PM CDT Due to temporary technical issues with the PACS/Fluency reporting system, reports are being signed by the in house radiologists without review as a courtesy to insure prompt reporting. The interpreting radiologist is fully responsible for the content of the report.
--- NOTE | 2022-11-07 13:07 | EKG ---
Test Date: 2022-11-04 Test Time: 21:55:06 Tours Hostess: ARLIN MEASUREMENT RESULTS: Intervals: Rate: 74 W[place]: 150 QRSD: 100 QT: 380 QTc: 421 [place]: P: 44 [place]: 150 QRS: 55 T: 45 INTERPRETIVE STATEMENTS: Normal sinus rhythm with sinus arrhythmia Normal ECG Compared to ECG 10/10/2018 07:06:06 Left ventricular hypertrophy no longer present Electronically Signed On 11-07-22 13:05:19 CDT by Navin Hogan
== END 2022-11-05 03:25 | disposition home or self-care (01) ==
LOC: ER 21:43
DX: L50.1 Idiopathic urticaria (principal); F10.10 Alcohol abuse, uncomplicated; R74.8 Abnormal levels of other serum enzymes; R07.9 Chest pain, unspecified; Z88.9 Allergy status to unspecified drugs, medicaments and biological substances; Z88.0 Allergy status to penicillin
CPT/HCPCS: 96361; 93005; 85025; 36415; 82140; 85610; 84484; 83690; 80053; 80074; 71260; 74177; 71045; 76705; 96375; 96374; 99285; 80143; Q9967; J7512; J1200; J2930; J7030